=== PATIENT | male | born 1985 | race Caucasian/White ===

== ENCOUNTER → 2017-10-14 16:12 | Outpatient (CLI) | payer BC, SELFPAY ==
--- NOTE | 2017-10-16 | LES_PTH ---
PATIENT: DAGOBERTO IBARRA LOC: [facility] U#:[id number] AGE/SX: 40/M ROOM: RE10/14/[address]: Dr. Dewey Gonsalves DO : 1985 BED: DIS: SPEC #: [id number] RECD: 10/17/17 08:07 STATUS: TIO PÉREZ #: [id number] SYD: 10/16/17 00:[address]: Dewey Gonsalves DEPT: SURGICAL PATHOLOGY RECD BY: Alfonso Etienne Tissues: Skin of upper extremity and shoulder Procedures: Surgery Specimen Level IV HEADER OPERATION: Punch biopsy PRE-OP DIAGNOSIS: Abnormal nevus; rule out melanoma TISSUE SUBMITTED: 3 mm punch, right posterior shoulder MICROSCOPIC DIAGNOSIS Skin lesion right posterior shoulder, punch biopsy: Intradermal nevus with mild architectural atypia. AM:lilly 10/18/17 COMMENT Immunohistochemistry ([id number]) supports the above diagnosis. Case has been reviewed in consultation with Dr. Maradiaga who concurs with the above diagnosis. IDC:SJ MICROSCOPIC DESCRIPTION Slides are reviewed. GROSS DESCRIPTION Received is one container labeled with the patient's name and not further designated. The specimen consists of a single irregular fragment of blanton tissue measuring 0.2 x 0.2 x 0.1 cm. The specimen is totally submitted in one cassette. / AM:lilly 10/17/17 TC:? CPT: 02247
--- NOTE | 2017-10-16 | IMM_PTH ---
PATIENT: DAGOBERTO IBARRA LOC: [facility] U#:[id number] AGE/SX: 40/M ROOM: RE10/14/[address]: Dr. Dewey Gonsalves DO : 1985 BED: DIS: SPEC #: [id number] RECD: 10/18/17 10:36 STATUS: TIO REDinora #: [id number] SYD: 10/16/17 00:[address]: Dewey Gonsalves DEPT: IMMUNOHISTOCHEMISTRY RECD BY: Breanna Hdez Tissues: Shoulder, NOS Procedures: Vimentin (add) Pankeratin (add) MELAN-A (initial) S-100 (add) PHYSICIAN & INSTITUTION [place] [id number] SPECIMEN INFORMATION: Tissue Source: Right posterior shoulder Clinical Info: Abnormal nevus Specimen Number: [id number] CPT code: 73718, 49357 x3 METHODOLOGY: Deparaffinized sections of prefer/formalin-fixed tissue or PAP/DQ stained slides are incubated with monoclonal/polyclonal antibodies/oligonucleotide probes. Localization is made via biotin free immunoperoxidase method. Appropriate controls are performed and reacted as expected. Results on target cell population are indicated in the following table: RESULTS: ANTIBODY / CLONE RESULT Melan A (A103) positive S-100 (4C4.9) positive Vimentin (V9) positive AE1-3 (AE1/AE3/PCK26) negative These tests were developed and their performance characteristics determined by [facility]. They may not have been cleared or approved by the U.S. Food and Drug Administration. The FDA has determined that such clearance or approval is not necessary. INTERPRETATION: Right posterior shoulder, punch biopsy: Consistent with intradermal nevus. AM:lilly 10/19/17 Comment: Complete excision is recommended if clinically indicated. Case has been reviewed in consultation with Dr. Maradiaga who concurs with the above diagnosis. IDC:SJ
== END ==
PROVIDERS: Family Provider Family Medicine; PCP Family Medicine; Visit Provider Family Medicine
DX: D22.9 Melanocytic nevi, unspecified (principal)
CPT/HCPCS: 88305; 88341; 88342

== ENCOUNTER 2018-04-02 22:12 | Emergency (ER) | payer BC, SELFPAY ==
--- NOTE | 2018-04-02 22:20 | EKG12_ITS ---
Test Reason : TACHYCARDIA Blood Pressure : / mmHG Vent. Rate : 146 BPM Atrial Rate : 146 BPM P-R Int : 000 ms QRS Dur : 106 ms QT Int : 342 ms P-R-T Axes : 000 009 037 degrees QTc Int : 532 ms Atrial flutter Septal infarct , age undetermined Abnormal ECG Confirmed by PEEWEE SINGH, UMAIR ([id number]), editorial intern MATT CASEY ([id number]) on 04/04/2018 2:16:03 PM Referred By: HUBERT CHATTERJEE Confirmed By:UMAIR VIDES MD
[2018-04-02 22:31] VITALS: BP 116/82; PULSE 147; RESP 23; TEMP 36.9; O2SAT 94; BMI 26.8
--- NOTE | 2018-04-02 22:31 | EKG12_ITS ---
Test Reason : REPEAT Blood Pressure : / mmHG Vent. Rate : 070 BPM Atrial Rate : 070 BPM P-R Int : 164 ms QRS Dur : 104 ms QT Int : 402 ms P-R-T Axes : -08 -12 -02 degrees QTc Int : 434 ms Normal sinus rhythm Normal ECG Confirmed by PEEWEE SINGH, UMAIR ([id number]), web content editor MATT CASEY ([id number]) on 04/04/2018 12:43:29 PM Referred By: PRICILA Confirmed By:UMAIR VIDES MD
[2018-04-02 22:34] VITALS: O2SAT 94
--- NOTE | 2018-04-02 22:35 | ED.VISSUMM ---
- ER Visit Summary Date of Service: 04/02/18 Chief Complaint: Palpitations History of Present Illness: The patient is a [address] 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 He has a history of coarctation of the aorta, bicuspid aortic valve, and aortic root dilation. He is also had aortic valvulotomy, and aortic balloon valvuloplasty. Patient reports she has palpitations that began 1 hour ago. States his heart rates usually in the 60s and 70s. It is now 145. Reports that he felt lightheaded at the onset of this. He has not had any syncope. He denies any chest pain or shortness of breath. No nausea or vomiting. He has been diaphoretic with this. Had a similar episode in 2016 and was in atrial flutter. He has not had this since. Review of systems: General: No fever, chills, cold sweats. Cardiovascular: No chest pain. Respiratory: No cough, shortness of breath, dyspnea on exertion. Gastrointestinal: No abdominal pain, nausea, vomiting, diarrhea, melena, or hematochezia. Genitourinary: No dysuria, frequency, hematuria. Skin: No rash. Neuro: No headache, numbness, weakness. Physical Examination: Vitals: 98.7, 116/82, 146, 20, 98% on room air which is not hypoxic. General: Well-nourished and well-developed. Head: Normocephalic atraumatic. Neck: Supple, no lymphadenopathy. No JVD. Nontender. Cardiovascular: Regular rate and rhythm. No murmurs. Respiratory: No respiratory distress. Clear to auscultation bilaterally. Abdominal: Soft, nontender, nondistended, normal bowel sounds. No guarding, rebound, or peritoneal signs. Back: Nontender. Extremities: Nontender, no edema. Skin: Normal color, no rash. Neurologic: Alert and oriented ?3. Cranial nerves II through XII are intact. Normal strength and sensation. Psych: Normal affect. Test Results: EKG is atrial flutter at [address] changes. Repeat EKG is sinus at 70 with no acute changes. CBC is more for hemoglobin is 16.8, segmented neutrophils of 43, lymphocytes 41. Chem-7 is more for chloride 108. Troponin is negative. TSH is 3.54. Chest x-ray shows no acute disease. Emergency Department Course and Treatment: Patient had an IV placed. He was given Cardizem IV with essentially no decrease in his rate. He was given a second 25 mg bolus of Cardizem. This also did not affect his rate. Had prolonged discussion with the patient about treatment options. Ultimately he decided for cardioversion. Patient was given 8 mg of etomidate IV. He had synchronized cardioversion undertaken with 200 J and converted to sinus rhythm. He was observed for an hour following this remained in sinus rhythm. Treatment Plan: Patient will be discharged instructions to follow-up with his tank car cleaner at [facility] as soon as possible. Return to the emergency department for any change in his rhythm or other concerns. Disposition: To home in improved and stable condition. Impression: 1. Atrial flutter with RVR. 2. Procedural sedation. 3. Cardioversion. 4. Critical care time 30 minutes. This note was generated with [employer] dictation software. It may contain incorrect words, spelling, and punctuation that were not noted in review of the chart prior to signing ED Disposition - Plan for ED Patient: Disposition: Home or Assisted Living Chief Complaint: Palpitations Instructions: ED Paroxysmal Atrial Flutter Additional Instructions: follow up with your Pulp Refiner Operator within a week for another exam.
[2018-04-02] MEDS: dilTIAZem 25 MG/5 ML Vial 20 MG IV BOLUS (22:40)
[2018-04-02] MEDS: Aspirin 81 MG TAB.CHEW 162 MG PO (22:40)
[2018-04-02] MEDS: 0.9% Normal Saline 1,000 ML 1000 ML IV (22:40)
--- NOTE | 2018-04-02 22:40 | RAD_ITS ---
STUDY: X-RAY CHEST REASON FOR EXAM: Male, 32 years old. Chest pain TECHNIQUE: Frontal view of the chest COMPARISON: 05/16/2016 FINDINGS: The lungs are clear. There are no pleural effusions. There is no pneumothorax. The heart is normal in size. The visualized osseous structures are within normal limits. RAD/Chest 1 View (Portable) IMPRESSION: No acute thoracic pathology. Electronically Signed: Shawn Alanis, at 23:14 EDT Tel , Service support ,
--- NOTE | 2018-04-02 22:49 | ED.DCSUM_ITS ---
- ER Visit Summary Date of Service: 04/02/18 Chief Complaint: Palpitations History of Present Illness: The patient is a [address] 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 He has a history of coarctation of the aorta, bicuspid aortic valve, and aortic root dilation. He is also had aortic valvulotomy, and aortic balloon valvuloplasty. Patient reports she has palpitations that began 1 hour ago. States his heart rates usually in the 60s and 70s. It is now 145. Reports that he felt lightheaded at the onset of this. He has not had any syncope. He denies any chest pain or shortness of breath. No nausea or vomiting. He has been diaphoretic with this. Had a similar episode in 2016 and was in atrial flutter. He has not had this since. Review of systems: General: No fever, chills, cold sweats. Cardiovascular: No chest pain. Respiratory: No cough, shortness of breath, dyspnea on exertion. Gastrointestinal: No abdominal pain, nausea, vomiting, diarrhea, melena, or hematochezia. Genitourinary: No dysuria, frequency, hematuria. Skin: No rash. Neuro: No headache, numbness, weakness. Physical Examination: Vitals: 98.7, 116/82, 146, 20, 98% on room air which is not hypoxic. General: Well-nourished and well-developed. Head: Normocephalic atraumatic. Neck: Supple, no lymphadenopathy. No JVD. Nontender. Cardiovascular: Regular rate and rhythm. No murmurs. Respiratory: No respiratory distress. Clear to auscultation bilaterally. Abdominal: Soft, nontender, nondistended, normal bowel sounds. No guarding, rebound, or peritoneal signs. Back: Nontender. Extremities: Nontender, no edema. Skin: Normal color, no rash. Neurologic: Alert and oriented ?3. Cranial nerves II through XII are intact. Normal strength and sensation. Psych: Normal affect. Test Results: EKG is atrial flutter at [address] changes. Repeat EKG is sinus at 70 with no acute changes. CBC is more for hemoglobin is 16.8, segmented neutrophils of 43, lymphocytes 41. Chem-7 is more for chloride 108. Troponin is negative. TSH is 3.54. Chest x-ray shows no acute disease. Emergency Department Course and Treatment: Patient had an IV placed. He was given Cardizem IV with essentially no decrease in his rate. He was given a second 25 mg bolus of Cardizem. This also did not affect his rate. Had prolonged discussion with the patient about treatment options. Ultimately he decided for cardioversion. Patient was given 8 mg of etomidate IV. He had synchronized cardioversion undertaken with 200 J and converted to sinus rhythm. He was observed for an hour following this remained in sinus rhythm. Treatment Plan: Patient will be discharged instructions to follow-up with his bag machine adjuster at [facility] as soon as possible. Return to the emergency department for any change in his rhythm or other concerns. Disposition: To home in improved and stable condition. Impression: 1. Atrial flutter with RVR. 2. Procedural sedation. 3. Cardioversion. 4. Critical care time 30 minutes. This note was generated with [employer] dictation software. It may contain incorrect words, spelling, and punctuation that were not noted in review of the chart prior to signing ED Disposition - Plan for ED Patient: Disposition: Home or Assisted Living Chief Complaint: Palpitations Instructions: ED Paroxysmal Atrial Flutter Additional Instructions: follow up with your Vertical Lathe Operator within a week for another exam.
[2018-04-02 22:55] VITALS: BP 118/82; PULSE 146; RESP 16; O2SAT 98
[2018-04-02 22:56] LABS: Absolute Lymphocyte Count 2.31 X10^3/ul (0.83-4.51); Absolute Neutrophil Count 2.4 X10^3/uL (2.0-7.7); Basophil# 0.04 X10^3/uL; Basophil% 0.7 % (0-1); Eosinophil# 0.26 X10^3/uL; Eosinophils% 4.7 % (0-5); Hematocrit 47.4 % (40-54); Hemoglobin 16.8 g/dl (13.0-16.5); Lymphocyte # 2.31 X10^3/ul (4.0); Lymphocyte % 41.3 % (19-41); Mean Corp Hgb Conc 35.4 g/gl (32-36); Mean Corpuscular Hgb 31.5 pg (27.0-32.0); Mean Corpuscular Volume 88.8 fL (80-94); Mean Platelet Vol. 10.4 fl (6.2-12.0); Monocyte# 0.58 X10^3/uL; Monocyte% 10.4 % (0-10); Neutrophil # 2.39 X10^3/uL (2.7-7.7); Neutrophil % 42.7 % (47-70); Platelet Count 175 K/mm3 (150-450); RBC Distribution Width CV 12.9 % (11.6-14.6); RBC Distribution Width SD 42.3 fl (35.1-43.9); Red Blood Count 5.34 M/mm3 (4.6-6.2); White Blood Count 5.6 K/mm3 (4.4-11.0)
[2018-04-02 22:57] LABS: POSITIVE COUNT NO; POSITIVE DIFFERENTIAL NO; POSITIVE MORPHOLOGY NO
[2018-04-02 23:02] LABS: Anion Gap 11 (5-15); BUN 17 mg/dL (7-18); BUN/Creat Ratio 16.2 RATIO (10-20); Calcium,Total 9.2 mg/dL (8.5-10.1); Chloride 108 mmol/L (98-107); Creatinine, Serum 1.05 mg/dL (0.70-1.30); EST Glomerular Filtration Rate 88 mL/min (>60); Est Glom Filt Rate - Afr Amer 106 mL/min (>60); Estimated Creatinine Clearance 106.22 ml/min; Glucose 97 mg/dL (74-106); Potassium 3.7 mmol/L (3.5-5.1); Sodium Level 142 mmol/L (136-145); Thyroid Stim Hormone (TSH) 3.54 uIU/mL (0.358-3.74)
[2018-04-02] MEDS: dilTIAZem 25 MG/5 ML Vial IV BOLUS (23:07)
[2018-04-02 23:19] VITALS: BP 108/89; PULSE 146; RESP 16; O2SAT 97
[2018-04-02 23:53] VITALS: BP 112/85; PULSE 148; RESP 16; O2SAT 97
[2018-04-02] MEDS: Etomidate 20 MG/10 ML Vial 8 MG IV (23:58)
[2018-04-02 23:59] VITALS: BP 112/85; BP 119/97; PULSE 146; PULSE 84; RESP 16; O2SAT 100; O2SAT 98
[2018-04-03 00:02] VITALS: BP 119/91; PULSE 77; RESP 16; O2SAT 100
[2018-04-03 00:05] VITALS: BP 119/91; PULSE 67; RESP 16; O2SAT 100
[2018-04-03 00:07] VITALS: BP 113/90; PULSE 67; RESP 16; O2SAT 99
[2018-04-03 00:08] VITALS: BP 113/90; O2SAT 100
[2018-04-03 00:12] VITALS: BP 113/90; PULSE 71; RESP 16; O2SAT 98
[2018-04-03 00:44] VITALS: BP 112/86; PULSE 72; RESP 16; O2SAT 97
== END 2018-04-03 00:52 | disposition home or self-care (01) ==
LOC: ED 23:05
PROVIDERS: Emergency Provider Emergency Medicine; Family Provider Family Medicine; PCP Family Medicine
DX: I48.92 Unspecified atrial flutter (principal); Q23.1 Congenital insufficiency of aortic valve
CPT/HCPCS: 71045; 80048; 84443; 84484; 85025; 92960; 93005; 99284; J7030; A4216

== ENCOUNTER → 2018-09-07 16:28 | Outpatient (CLI) | payer BC, SELFPAY ==
[2018-09-07 14:23] VITALS: BMI 25.8
--- NOTE | 2018-09-07 15:15 | MASS_PTH ---
PATIENT: DAGOBERTO IBARRA LOC: [facility] U#:[id number] AGE/SX: 40/M ROOM: RE09/07/[address]: Dr. Harish Jimenez MD : 1985 BED: DIS: SPEC #: [id number] RECD: 09/07/18 16:20 STATUS: TIO BETO #: [id number] SYD: 09/07/18 15:[address]: Harish Jimenez DEPT: SURGICAL PATHOLOGY RECD BY: Zain Ferro ENTERED: 09/08/18 12:13 SP TYPE: Mass OTHR DR: Dr. Dewey Gonsalves, DO Tissues: Hip, NOS Procedures: Surgery Specimen Level III HEADER OPERATION: Excision of subcutaneous mass right hip PRE-OP DIAGNOSIS: Mass of right hip region TISSUE SUBMITTED: Right hip mass MICROSCOPIC DIAGNOSIS Right hip mass, excision: Mature adipose tissue, consistent with lipoma with focal area of angiolipoma. SJ:lilly 12/24/18 MICROSCOPIC DESCRIPTION Slides are reviewed. GROSS DESCRIPTION Received in fixative is one container labeled with the patient's name and designated right hip mass. The specimen consists of a previously, partially disrupted piece of yellow adipose tissue measuring 9 x 5 x 3 cm. Sections reveal yellow adipose cut surfaces without area of hemorrhage, necrosis or cystic degeneration. Halal Butcher sections are submitted in two cassettes. / SJ:lilly 09/08/18 TC:1 CPT: 38160
== END ==
PROVIDERS: Family Provider Family Medicine; PCP Family Medicine; Referring Provider Surgery; Visit Provider Surgery
DX: R22.41 Localized swelling, mass and lump, right lower limb (principal)
CPT/HCPCS: 88304; 88305

== ENCOUNTER → 2022-02-26 | Outpatient (CLI) | payer OTHER, SELFPAY ==
[2022-02-26 12:38] LABS: Absolute Lymphocyte Count 1.61 X10^3/uL (0.83-4.51); Absolute Neutrophil Count 2.6 X10^3/uL (2.0-7.7); Basophil# 0.04 X10^3/uL; Basophil% 0.8 % (0-1); Eosinophil# 0.13 X10^3/uL; Eosinophils% 2.6 % (0-5); Hemoglobin 15.9 g/dL (13.0-16.5); Lymphocyte # 1.61 X10^3/ul (0.83-4.51); Lymphocyte % 32.4 % (19-41); Mean Corp Hgb Conc 33.8 g/dL (32-36); Mean Corpuscular Volume 91.6 fL (80-94); Mean Platelet Vol. 9.6 fl (6.2-12.0); Monocyte% 12.1 % (0-10); NRBC Flagged by Analyzer 0 % (0-5); Neutrophil # 2.58 X10^3/uL (2.7-7.7); Neutrophil % 51.9 % (47-70); Platelet Count 199 K/mm3 (150-450); RBC Distribution Width CV 12.7 % (11.6-14.6); Red Blood Count 5.13 M/mm3 (4.6-6.2)
[2022-02-26 12:49] LABS: Erythrocyte Sedimentation Rate 6 mm/hr (0-20)
[2022-02-26 13:06] LABS: CRP < 2.90 mg/L (0.0-3.0)
== END | disposition home or self-care (01) ==
LOC: LAB 11:37
PROVIDERS: PCP Family Medicine; Visit Provider Nurse Practitioner Adult Health
DX: K62.5 Hemorrhage of anus and rectum (principal); K62.89 Other specified diseases of anus and rectum
CPT/HCPCS: 36415; 85025; 85652; 86140

== ENCOUNTER 2022-05-05 10:56 | Day surgery (SDC) | payer OTHER, SELFPAY ==
[2022-05-05] VITALS (7 sets, daily range): BP systolic 98–134; BP diastolic 82–99; PULSE 70–106; RESP 16; TEMP 36.6–36.8; O2SAT 96–100; BMI 27.6
--- NOTE | 2022-05-05 | COLBX_PTH ---
PATIENT: DAGOBERTO IBARRA LOC: [facility] U#:[id number] AGE/SX: 36/M ROOM: RE05/05/[address]: Dr. Shabbir Estrada DO : 1985 BED: DIS: 05/05/2022 SPEC #: [id number] RECD: 05/05/22 14:22 STATUS: TIO BETO #: [id number] SYD: 05/05/22 00:[address]: Shabbir Estrada DEPT: SURGICAL PATHOLOGY RECD BY: Alfonso Etienne ENTERED: 05/06/22 08:53 SP TYPE: COLON BX OT DR: Dr. Dewey Gonsalves DO Tissues: A - Ileum, NOS B - COLON BIOPSY Procedures: Surgery Specimen Level IV HEADER OPERATION: Colonoscopy (MAC) PRE-OP DIAGNOSIS: Lower GI bleed TISSUE SUBMITTED: A. Terminal ileum, B. Random colon MICROSCOPIC DIAGNOSIS A. Terminal ileum, biopsy: Fragments of small intestinal mucosa, no pathologic diagnosis. B. Random colon, biopsy: Fragments of colonic mucosa, no pathologic diagnosis. JESSIE 05/07/2022 MICROSCOPIC DESCRIPTION Slides are reviewed. GROSS DESCRIPTION A. Received is one container labeled with the patient name and designated terminal ileum. The specimen consists of two irregular fragments of light blanton soft tissue that in aggregate 0.6 x 0.3 x 0.1 cm. The specimen is totally submitted in one cassette. B. Received is one container labeled with the patient name and designated random colon. The specimen consists of multiple irregular fragments of light blanton soft tissue that in aggregate 0.8 x 0.8 x 0.1 cm. The specimen is totally submitted in one cassette. /JESSIE:millie 05/06/22 TC:4 CPT:52333 x2
[2022-05-05] MEDS: Lactated Ringers 1,000 ML 15 ML IV (11:26)
--- NOTE | 2022-05-05 11:44 | PCM.HP.BLA ---
History and Physical Date of Admission: 05/05/22 DAGOBERTO IBARRA, is a 36 M who presents to the office today for approx one year of bright red blood per rectum that is painful. He has been treated for possible internal hemorrhoids with prescription suppository; he gets only brief temporary relief. He says the pain is usually a mild discomfort but can be more severe. The discomfort is maybe just inside the anus but difficult to tell. Also has a discomfort in the lower abdomen; gets the feeling he might have diarrhea but doesn't, it's a discomfort in the lower intestines. The rectal bleeding and discomfort occur almost every time he has BM. Denies constipation, straining, hard stools.? Denies diarrhea.? No black tarry stools. He has no dysphagia or difficulty swallowing, no nausea or vomiting, no heartburn or acid reflux.? No abdominal pain other than the discomfort in the lower intestines. Only recent labs are lipids and glucose. Grandfather of colon cancer recently, he was in his 80s No FH inflammatory bowel disease His comorbidities include aortic root dilation, atrial flutter, headaches, vasovagal attack Prior surgery for bicuspid aortic valve, coarctation of aorta, radiofrequency ablation for arrhythmia ROS Const Constitutional: No fatigue ENT ENT: No difficulty swallowing Gastro GI: Positive for Blood in stool; No abdominal pain, belching, bloating, change in bowel habits, change in stool character, coffee ground emesis, constipation, cramping, diarrhea, heartburn, difficulty swallowing, feeling full early, excessive flatus, incontinent of stools, Vomiting blood/hematemesis, loose stools, Black,tarry stools, nausea/dyspepsia, pain with swallowing, vomiting or other Musc Musculoskeletal: Positive for back pain and stiffness; No joint pain Skin Skin: No yellowing of the eye or itchy eyes Psych Psychiatric: No anxiety and No depression Endo Endocrine: No fatigue Aller/Imm Allergy/Immunologic: No itchy eyes Jaime/Lymp Hematologic/Lymphatic: No easy bleeding or easy bruising Exam Const General: healthy appearing, comfortable, well developed and well groomed Nutritional Appearance: average body habitus Eyes General: appearance normal, both eyes and all related structures Resp Effort & Inspection: normal respiratory effort Neuro General: patient alert, patient awake and patient oriented x3 Speech: speech normal Gait: normal gait Psych Mood: euthymic mood Affect: normal affect Quality Reporting Tobacco Screening ([facility] 138) Smoking Status: Never smoker Assessment and Plan Assessment and Plan (1) Bright red blood per rectum: ?Status:?Acute (2) Rectal pain: ?Status:?Acute ? ? ? Orders:?Orders: ? CRP Today K62.5, K62.89 ? ? CBC W/Diff, Automated Today K62.5, K62.89 ? ? Erythrocyte Sed Rate Today K62.5, K62.89 ?Plan - Janett Umana NURSE RECRUITER, NURSE RECRUITER-C: 36-year-old male with painful rectal bleeding.? He may have internal hemorrhoids that need banding.? We also need to evaluate him for ulcerative colitis or malignancy.? Today we will get CBC and inflammatory markers.? We will notify him of of those results, and if any further evaluation is needed based on those.? We will schedule him for colonoscopy with 2-week follow-up to discuss results. I have re-examined the patient. There are no clinical changes since date of exam.
--- NOTE | 2022-05-05 12:33 | OP.COLON_ITS ---
Patient Name: Noel Arteaga Procedure Date: 05/05/2022 11:44 AM Date of : 1985 Age: 36 Procedure: Colonoscopy Indications: Hematochezia Providers: Shabbir Estrada DO Medicines: Monitored Anesthesia Care Patient Profile: This is a 36 year old male. Refer to note in patient chart for documentation of history and physical. Last Colonoscopy: none. The patient's first colonoscopy is today. Complications: No immediate complications. Procedure: Pre-Anesthesia Assessment: - Prior to the procedure, a History and Physical was performed, and patient medications and allergies were reviewed. The patient is competent. The risks and benefits of the procedure and the sedation options and risks were discussed with the patient. All questions were answered and informed consent was obtained. Patient identification and proposed procedure were verified by the physician in the pre-procedure area. Mental Status Examination: alert and oriented. Airway Examination: normal oropharyngeal airway and neck mobility. Respiratory Examination: clear to auscultation. CV Examination: normal. Prophylactic Antibiotics: The patient does not require prophylactic antibiotics. Prior Anticoagulants: The patient has taken no previous anticoagulant or antiplatelet agents. ASA Grade Assessment: II - A patient with mild systemic disease. After reviewing the risks and benefits, the patient was deemed in satisfactory condition to undergo the procedure. The anesthesia plan was to use moderate sedation / analgesia (conscious sedation). Immediately prior to administration of medications, the patient was re-assessed for adequacy to receive sedatives. The heart rate, respiratory rate, oxygen saturations, blood pressure, adequacy of pulmonary ventilation, and response to care were monitored throughout the procedure. The physical status of the patient was re-assessed after the procedure. After I obtained informed consent, the scope was passed under direct vision. Throughout the procedure, the patient's blood pressure, pulse, and oxygen saturations were monitored continuously. The adult colonoscope was introduced through the anus and advanced to the terminal ileum. The colonoscopy was performed without difficulty. The patient tolerated the procedure well. The quality of the bowel preparation was good. Scope In: 12:03:02 PM Scope Withdrawal Time 0 hours 14 minutes 37 seconds Scope Out: 12:20:45 PM Total Procedure Duration Time 0 hours 17 minutes 43 seconds Findings: Hemorrhoids were found on perianal exam. An area of mildly congested mucosa was found in the recto-sigmoid colon, in the sigmoid colon, at the splenic flexure and in the transverse colon. Biopsies were taken with a cold forceps for histology. Verification of patient identification for the specimen was done. Estimated blood loss was minimal. A patchy area of mucosa in the terminal ileum was mildly friable with no bleeding. Biopsies were taken with a cold forceps for histology. Verification of patient identification for the specimen was done. Estimated blood loss was minimal. Non-bleeding non-prolapsed thrombosed external and internal hemorrhoids were found during retroflexion and during perianal exam. The hemorrhoids were Grade II (internal hemorrhoids that prolapse but reduce spontaneously) and Grade III (internal hemorrhoids that prolapse but require manual reduction). Impression: - Hemorrhoids found on perianal exam. - Congested mucosa in the recto-sigmoid colon, in the sigmoid colon, at the splenic flexure and in the transverse colon. Biopsied. - Friability with no bleeding in the terminal ileum. Biopsied. - Non-bleeding non-prolapsed thrombosed external and internal hemorrhoids. Recommendation: - Repeat colonoscopy in 5 years for surveillance based on pathology results. - Hydrocortisone suppositories twice a day x 21 days - Anoscopic exam in office after the anal fissure has healed - Hemorrhoid banding in the office - Continue present medications. Procedure Code(s): --- Professional --- 23217, Colonoscopy, flexible; with biopsy, single or multiple CPT copyright 2017 [employer]. All rights reserved. The codes documented in this report are preliminary and upon car hiker review may be revised to meet current compliance requirements. Shabbir Estrada DO 05/05/2022 12:32:50 PM This report has been signed electronically. Number of Addenda: 1 Note Initiated On: 05/05/2022 11:44 AM Addendum Number: 1 Addendum Date: 06/24/2022 6:15:12 AM MAC was used as sedation for this procedure. Shabbir Estrada DO 06/24/2022 6:15:17 AM This report has been signed electronically.
--- NOTE | 2022-05-05 12:34 | OP.CCLET_ITS ---
06/24/2022 Dewey Gonsalves [address] [place] [address] Re : Colonoscopy procedure for Noel Arteaga Dear Dr. Gonsalves This procedure was performed on Thursday, May 05, 2022. My impressions and recommendations are as follows: Impressions : - Hemorrhoids found on perianal exam. - Congested mucosa in the recto-sigmoid colon, in the sigmoid colon, at the splenic flexure and in the transverse colon. Biopsied. - Friability with no bleeding in the terminal ileum. Biopsied. - Non-bleeding non-prolapsed thrombosed external and internal hemorrhoids. Recommendations : - Repeat colonoscopy in 5 years for surveillance based on pathology results. - Hydrocortisone suppositories twice a day x 21 days - Anoscopic exam in office after the anal fissure has healed - Hemorrhoid banding in the office - Continue present medications. My findings are described in the full procedure note, which is enclosed. If I can be of further assistance, please feel free to contact me at . Sincerely, Shabbir Estrada, 05/05/2022 12:32:50 PM This report has been signed electronically.
== END 2022-05-05 13:22 | disposition home or self-care (01) ==
LOC: EN 10:58 → AC 11:05
PROVIDERS: PCP Family Medicine; Referring Provider Family Medicine; Visit Provider Internal Medicine Gastroenterology
PROC: 0DJD8ZZ Inspection of Lower Intestinal Tract, Via Natural or Artificial Opening Endoscopic (ICD-10-PCS; CPT 45378; principal; 2022-05-05 11:55)
DX: K62.5 Hemorrhage of anus and rectum (principal); K64.2 Third degree hemorrhoids; K64.1 Second degree hemorrhoids; Z80.0 Family history of malignant neoplasm of digestive organs; K62.89 Other specified diseases of anus and rectum
CPT/HCPCS: 45380; 88305; J7120; J2405

== ENCOUNTER 2023-02-27 20:40 | Emergency (ER) | payer OTHER, SELFPAY ==
[2023-02-27 20:41] VITALS: BP 130/96; PULSE 68; RESP 20; TEMP 35.5; O2SAT 100; BMI 26.9
--- NOTE | 2023-02-27 20:51 | ED.RN ---
EKG GIVEN RIGHT AWAY TO SANDOR. MADE AWARE OF PT WITH CHEST PAIN WITH HEART HISTORY BY RT FOURNIER. MADE AWARE THAT PHYSICIAN WAS REVIEWING EKG AND WOULD BE IN SOON AVAILABLE.
--- NOTE | 2023-02-27 20:59 | CT_ITS ---
INDICATION: Chest pain, abdominal pain EXAMINATION: CTA CHEST, ABDOMEN AND PELVIS WITH CONTRAST - TECHNIQUE: A CTA of the chest, abdomen, and pelvis is obtained with sagittal and coronal reconstructed MIP views. Three-dimensional surface rendered sequence of the thoracic and abdominal aorta was obtained. A radiation dose optimization technique was used for this scan. mL of [id number]-[id number]. Oral contrast: None. COMPARISON: None. FINDINGS: CT CHEST: THORACIC AORTA: 5.2 cm aneurysm of the ascending aorta likely from chronic hypertension or aortic stenosis. Suspect an aortic valve prosthesis. Unusual variant of a bovine arch with a common origin of the brachiocephalic trunk and left common carotid artery. Unusual variant anatomy to the proximal left subclavian artery which is hypoplastic and courses superiorly into the neck. Kink within the distal aortic arch at the origin of the descending aorta may represent coarctation or pseudocoarctation. The aortic arch measures 2.0 cm in diameter. The proximal descending aorta measures 2.5 cm in diameter. There is no evidence of aortic dissection.. ABDOMINAL AORTA: No aneurysm or dissection. No significant atheromatous disease. The left iliac arteries are unremarkable. There is variant anatomy of the right iliac arteries with a normal right common iliac artery which then bifurcates into multiple internal iliac artery branches without a normally visualized right external iliac artery. The right common femoral artery is supplied by the profunda femoris artery and collaterals from the right internal iliac artery. No chronic mesenteric ischemia or renal artery stenosis. Status post median sternotomy. LUNGS: The lungs are well-expanded without acute or chronic changes. No effusions or pneumothorax. MEDIASTINUM: The thyroid gland is normal. No mediastinal or hilar adenopathy. HEART: Heart is normal size. No pericardial effusion. No CAD. CT ABDOMEN AND PELVIS: LIVER: The liver enhances homogeneously. No masses identified. GALLBLADDER: The CBD is normal. Normal gallbladder. SPLEEN: Normal. PANCREAS: No masses or inflammation. ADRENAL GLANDS: Normal. KIDNEYS AND URETERS: The kidneys both enhance appropriately. There are normal size and shape. No hydronephrosis or nephrolithiasis. No renal masses or cysts. STOMACH: Normal. SMALL BOWEL: No abnormal distention of the small bowel. MESENTERY: No mesenteric inflammation. No ascites. COLON: No significant diverticulosis, masses or inflammation. The colon otherwise is normal. There is a large fatty ileocecal valve. APPENDIX: The appendix is visualized and normal. IVC: Normal. RETROPERITONEUM: No retroperitoneal lymphadenopathy. PELVIC STRUCTURES: Normal bladder. SOFT TISSUES ABDOMEN: The anterior abdominal wall is normal. SOFT TISSUE CHEST: The extrathoracic soft tissues are normal. BONES: No fractures or significant degenerative disease. CT/CTA Chst, Abd, Pel W and/or WO IMPRESSION: 1. No acute abnormality. 2. 5.2 cm aneurysm of the ascending aorta likely from chronic aortic stenosis with a suspected aortic valve prosthesis. 3. . Variant anatomy of the aortic arch with a possible coarctation or pseudocoarctation, bovine arch, and hypoplastic proximal left subclavian artery which courses superiorly into the base of the neck. 4. No aortic dissection. 5. No chronic mesenteric ischemia renal artery stenosis. 6. 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 Electronically Signed: Bebeto Walker MD at 22:20 EDT ,
--- NOTE | 2023-02-27 20:59 | EKG12_ITS ---
Test Reason : CP Blood Pressure : / mmHG Vent. Rate : 070 BPM Atrial Rate : 070 BPM P-R Int : 178 ms QRS Dur : 094 ms QT Int : 418 ms P-R-T Axes : 031 -19 017 degrees QTc Int : 451 ms Normal sinus rhythm Septal infarct , age undetermined Abnormal ECG Confirmed by JEREMIAH SINGH, FUNMI ([id number]), news video editor HENRIK MALCOLM ([id number]) on 03/01/2023 8:59:17 AM Referred By: AL Confirmed By:FREEMAN DANIELS MD
[2023-02-27] MEDS: Ondansetron 4 MG/2 ML Vial IV (21:05)
[2023-02-27] MEDS: Morphine 4 MG/ML Syringe IV ×2 (21:06→23:30)
[2023-02-27 21:17] LABS: Absolute Lymphocyte Count 3.03 X10^3/uL (0.83-4.51); Absolute Neutrophil Count 4.9 X10^3/uL (2.0-7.7); Basophil# 0.06 X10^3/uL; Basophil% 0.6 % (0-1); Eosinophil# 0.29 X10^3/uL; Eosinophils% 3.1 % (0-5); Hematocrit 47.2 % (40-54); Hemoglobin 15.9 g/dL (13.0-16.5); Lymphocyte # 3.03 X10^3/ul (0.83-4.51); Lymphocyte % 32.3 % (19-41); Mean Corp Hgb Conc 33.7 g/dL (32-36); Mean Corpuscular Hgb 31.3 pg (27.0-32.0); Mean Corpuscular Volume 92.9 fL (80-94); Monocyte% 11.7 % (0-10); NRBC Flagged by Analyzer 0 % (0-5); Neutrophil # 4.89 X10^3/uL (2.7-7.7); Neutrophil % 52.1 % (47-70); Platelet Count 191 K/mm3 (150-450); RBC Distribution Width CV 12.6 % (11.6-14.6); Red Blood Count 5.08 M/mm3 (4.6-6.2); White Blood Count 9.4 K/mm3 (4.4-11.0)
[2023-02-27 21:22] LABS: Prothrombin Time (Protime)PT. 13.5 SECONDS (11.7-14.9)
[2023-02-27 21:26] LABS: ALB/GLOB Ratio 1.2 RATIO (0.9-2.4); AST(SGOT) 31 U/L (15-37); Alanine Aminotransfer ALT/SGPT 32 U/L (16-61); Albumin, Serum 4.3 g/dL (3.2-5.0); Alkaline Phosphatase 70 U/L (45-117); Anion Gap 9 (5-15); BUN 27 mg/dL (7-18); BUN/Creat Ratio 17.8 RATIO (10-20); Calcium,Total 9.6 mg/dL (8.5-10.1); Chloride 106 mmol/L (98-107); Creatinine, Serum 1.52 mg/dL (0.70-1.30); EST Glomerular Filtration Rate 56 mL/min (>60); Est Glom Filt Rate - Afr Amer 67 mL/min (>60); Estimated Creatinine Clearance 70.04 ml/min; Globulin 3.5 g/dL (2.2-4.2); Glucose 109 mg/dL (74-106); Lipase 39 U/L (13-75); Potassium 3.7 mmol/L (3.5-5.1); Protein, Total 7.8 g/dL (6.4-8.2); Sodium Level 141 mmol/L (136-145); Troponin-I HS (w/2H Reflex) 4 pg/mL (3.0-78.0)
[2023-02-27] MEDS: 0.9% Normal Saline 1,000 ML 1000 ML IV (22:13)
[2023-02-27 22:24] LABS: Bacteria 0 SEEN /hpf (None Seen); Mucous, Urine 0 SEEN /hpf (<or=2+); Red Blood Cells-Urine 0 SEEN /hpf (0-5); White Blood Cells 0 SEEN /hpf (0-5)
[2023-02-27 22:26] LABS: Color, Urine Yellow (Yellow); Glucose, Dipstick Normal (Normal); Ketone-Dipstick Negative (Negative); Leukocyte Esterase-Dipstick Negative /ul (Negative); Nitrite-Dipstick Negative (Negative); Occult Blood-Urine Negative /ul (Negative); Protein-Dipstick 15 mg/dl (Negative); Specific Gravity, Urine 1.005 (1.002-1.030); Urine Bilirubin Dipstick Negative (Negative); Urine Clarity Sl. Cloudy (Clear); Urine Urobilinogen Normal (Normal)
[2023-02-27 22:32] LABS: Squamous Epithelial Cells - UA 5-10 SEEN /hpf (0-5)
[2023-02-27 22:33] LABS: Amorphous Sediment 1+ PHOS
[2023-02-27 23:05] LABS: Reflex Troponin-HS? (from REC) Y
--- NOTE | 2023-02-27 23:23 | ED.VIS.CHEST ---
HPI History of Present Illness Chief Complaint: Chest Pain Informant: patient and spouse/S.O. Onset/Context/Timing Onset: Today and Hours (1.5) Activity at onset: sudden Timing: Continuous Quality: Positive for - (Cramping) Location: Substernal and - (Epigastric area) Worsened By: Movement of Torso Relieved By: Nothing Associated Symptoms: Positive for Diaphoresis; Negative for Nausea, Vomiting, Dyspnea, Cough, Fever, Lightheadedness, Acid Reflux or Palpitations Narrative Narrative: Patient presents with chest pain that began 1-1/2 hours prior to arrival. Patient states it began rather suddenly. Patient describes it as cramping sensation. Patient states it is over the epigastric area and substernal area. Patient states it is worse with certain movements. Patient admits to some diaphoresis with the pain. Patient denies any nausea or vomiting. Patient denies any fevers or chills. Patient denies any shortness of breath or cough. Patient has a history of coarctation of the aorta, bicuspid aortic valve, and aortic root dilatation. CVD Risk Factors: Negative for Hypertension, Diabetes, Hypercholesterolemia, Family History 1' </=55 or Smoking PE Risk Factors: Negative for Recent Travel/Surgery, Recent Immobilization, Prior DVT or PE, Cancer or OCP + Smoking + >/=35 PFSH PFSH Medical History Abnormal cardiac enzyme level Alcohol use Anxiety Aortic root dilation Aortic stenosis Atrial fibrillation Atrial flutter with rapid ventricular response Back pain Blood in the stool Cardiology follow-up encounter Congenital heart defect Depression Heart disease Heartburn Hemorrhoids History of echocardiogram History of stress test Leg cramps Nausea Non-smoker Palpitations Vasovagal attack Wears glasses Home Medications Escitalopram Oxalate 10 mg PO DAILY 05/16/16 [History Last Taken 08/30/16] Losartan Potassium 25 mg PO DAILY 05/16/16 [History Last Taken 08/29/16] lorazepam 0.5 mg tablet 0.5 mg PO DAILY PRN Anxiety 05/17/16 [History Last Taken 08/23/16] aspirin 81 mg tablet,delayed release (Adult Aspirin Regimen) 81 mg PO DAILY 09/04/18 [History Last Taken Unknown] bupropion HCl 150 mg 24 hr tablet, extended release 150 mg PO QAM 12/17/18 [History Last Taken Unknown] cyclobenzaprine 10 mg tablet 10 mg PO PRN PRN Muscle Spasm 12/29/21 [History Last Taken Unknown] ondansetron HCl 4 mg tablet 4 mg PO PRN PRN Nausea 12/29/21 [History Last Taken Unknown] Diltiazem 2% / Lidocaine 5% ointment (compound) #1 ea 07/30/22 [Rx Last Taken Unknown] ferrous sulfate 325 mg (65 mg iron) tablet (iron) 325 mg PO DAILY 02/27/23 [History Last Taken Unknown] multivitamin 1 tab PO DAILY 02/27/23 [History Last Taken Unknown] Allergy/AdvReac Type Severity Reaction Status Date / Time No Known Allergies Allergy Verified 02/27/23 20:42 Family History Father Anxiety Other Colon cancer Surgical History Bicuspid aortic valve Coarctation of aorta History of cardiac catheterization S/P RF ablation operation for arrhythmia Social History Smoking Status: Never smoker second hand exposure: No alcohol intake: current alcohol intake frequency: a few times a month substance use type: does not use caffeine: Yes frequency: does not exercise seatbelt use: always ROS ROS ED ENT ENT ED: Reports ear pain Cardiovascular Cardiovascular: Reports as per HPI and chest pain Respiratory/Chest Respiratory/Chest: Denies cough or dyspnea Gastrointestinal Gastrointestinal: Denies nausea or vomiting Genitourinary Genitourinary ED: Denies dysuria or hematuria Musculoskeletal Musculoskeletal: Denies back pain or neck pain Integumentary Denies abscess or rash Neurologic Neurologic: Denies headache(s) or weakness Allergic/Immunologic Allergic/Immunologic ED: Denies mouth swelling, tongue swelling or urticaria EXAM Physical Exam Const Vital Signs: 02/27/23 20:41 02/27/23 20:43 02/27/23 23:32 Temperature 96 F L Temperature Source Temporal Pulse Rate 68 93 Respiratory Rate 20 H 12 Respiratory Effort Normal Blood Pressure 130/96 H 120/72 Blood Pressure Mean 107 88 Pulse Ox 100 96 Oxygen Delivery Method Room Air 02/28/23 01:14 Temperature Temperature Source Pulse Rate 71 Respiratory Rate 18 Respiratory Effort Blood Pressure 120/76 Blood Pressure Mean Pulse Ox 99 Oxygen Delivery Method Positive well nourished and well developed General Appearance ED: well developed and NAD HEENT normocephalic and atraumatic Eyes PERRL and EOMs intact bilaterally Neck supple and no JVD Chest Wall Chest Narrative: There is mild tenderness over the lower sternum. There is no edema or ecchymosis. There is no bony crepitance or step-off noted. Resp normal respiratory effort and clear to auscultation bilaterally Effort and Inspection: Negative for respiratory distress Cardio regular rate and regular rhythm GI normal to inspection, nondistended, normoactive bowel sounds and soft to palpation GI Narrative: There is mild tenderness over the epigastric area. There is no rebound or guarding noted. Extremity normal to inspection General Extremety ED: Negative for edema or tenderness General Extremity: Negative for edema Neuro oriented x3, CN's II-XII intact bilaterally and no sensory deficits noted Sensorium / Orientation: awake and alert Motor Exam: strength 5/5 throughout Psych mental status grossly normal Heart Score History: Slightly/Non-Suspicious ECG: Nonspecific Repolarization Age: </= 45 years Risk Factors: >/= 3 Risk Factors or History of CAD Troponin: </= Normal Limit Score: 3 MDM MDM MDM Narrative Medical decision making narrative: Differential diagnosis includes cardiac dysrhythmia, cardiac ischemia, electrolyte abnormality, aortic dissection, pulmonary embolism, aortic aneurysm, pneumonia, pancreatitis, anxiety, musculoskeletal pain. EKG will be obtained to assess for cardiac dysrhythmia and cardiac ischemia. CTA of the chest abdomen pelvis will be obtained to assess for aortic dissection, pulmonary embolism, and abdominal aneurysm. CBC will be obtained to assess for leukocytosis and anemia. Comprehensive metabolic profile will be obtained to assess for electrolyte abnormality, renal function, and hepatic function. High-sensitivity troponin will be obtained to assess for cardiac ischemia. Lipase will be obtained to assess for pancreatitis. PT was INR and PTT will be obtained to assess for coagulopathy. Urinalysis will be obtained to assess for urinary tract infection. Lab Data Attestation: I reviewed the patient's lab results. Lab results narrative: CBC was reviewed and was within normal limits. Comprehensive metabolic profile was reviewed. BUN was 27 and creatinine was 1.52. High-sensitivity troponin was reviewed and was normal at 4. Lipase was reviewed and was normal at 39. PT was INR and PTT were reviewed and were within normal limits. Urinalysis was reviewed and was within normal limits. 2-hour repeat high-sensitivity troponin was reviewed and was normal at 6. Labs: Laboratory Results - last 24 hr 02/27/23 02/27/23 02/27/23 20:10 20:10 20:10 WBC 9.4 RBC 5.08 Hgb 15.9 Hct 47.2 MCV 92.9 MCH 31.3 MCHC 33.7 RDW Std Deviation 43.0 RDW Coeff of Ayse 12.6 Plt Count 191 MPV 10.0 Immature Gran % (Auto) 0.200 Neut % (Auto) 52.1 Lymph % (Auto) 32.3 Andrews % (Auto) 11.7 H Eos % (Auto) 3.1 Baso % (Auto) 0.6 Absolute Neuts (auto) 4.9 Absolute Lymphs (auto) 3.03 Nucleated RBC % 0 PT 13.5 INR 1.0 APTT 32.0 Sodium 141 Potassium 3.7 Chloride 106 Carbon Dioxide 26.0 Anion Gap 9 BUN 27 H Creatinine 1.52 H Estim Creat Clear Calc 70.04 Est GFR (MDRD) Af Amer 67 Est GFR (MDRD) Non-Af 56 L BUN/Creatinine Ratio 17.8 Glucose 109 H Calcium 9.6 Total Bilirubin 0.50 AST 31 ALT 32 Alkaline Phosphatase 70 Troponin I High Sens 4 Total Protein 7.8 Albumin 4.3 Globulin 3.5 Albumin/Globulin Ratio 1.2 Lipase 39 Urine Color Urine Clarity Urine pH Ur Specific [place] Urine Protein Urine Glucose (UA) Urine Ketones Urine Occult Blood Urine Nitrite Urine Bilirubin Urine Urobilinogen Ur Leukocyte Esterase Urine RBC Urine WBC Ur Squamous Epith Cells Amorphous Sediment Urine Bacteria Urine Mucus 02/27/23 02/27/23 22:15 23:10 WBC RBC Hgb Hct MCV MCH MCHC RDW Std Deviation RDW Coeff of Ayse Plt Count MPV Immature Gran % (Auto) Neut % (Auto) Lymph % (Auto) Andrews % (Auto) Eos % (Auto) Baso % (Auto) Absolute Neuts (auto) Absolute Lymphs (auto) Nucleated RBC % PT INR APTT Sodium Potassium Chloride Carbon Dioxide Anion Gap BUN Creatinine Estim Creat Clear Calc Est GFR (MDRD) Af Amer Est GFR (MDRD) Non-Af BUN/Creatinine Ratio Glucose Calcium Total Bilirubin AST ALT Alkaline Phosphatase Troponin I High Sens 6 Total Protein Albumin Globulin Albumin/Globulin Ratio Lipase Urine Color Yellow Urine Clarity Sl. Cloudy Urine pH 7.0 Ur Specific [place] 1.005 Urine Protein 15 H Urine Glucose (UA) Normal Urine Ketones Negative Urine Occult Blood Negative Urine Nitrite Negative Urine Bilirubin Negative Urine Urobilinogen Normal Ur Leukocyte Esterase Negative Urine RBC 0 SEEN Urine WBC 0 SEEN Ur Squamous Epith Cells 5-10 SEEN Amorphous Sediment 1+ PHOS Urine Bacteria 0 SEEN Urine Mucus 0 SEEN Radiography Diagnostic Testing: Clinical Impression(s) from Imaging Studies Chest/Abdomen/Pelvis CTA 02/27/23 20:59 IMPRESSION: 1. No acute abnormality. 2. 5.2 cm aneurysm of the ascending aorta likely from chronic aortic stenosis with a suspected aortic valve prosthesis. 3. . Variant anatomy of the aortic arch with a possible coarctation or pseudocoarctation, bovine arch, and hypoplastic proximal left subclavian artery which courses superiorly into the base of the neck. 4. No aortic dissection. 5. No chronic mesenteric ischemia renal artery stenosis. 6. 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 Electronically Signed: Bebeto Walker MD at 22:20 EDT , CTA of the chest abdomen pelvis was obtained. There is no acute abnormality. There is a 5.2 cm aneurysm of the ascending aorta likely from his aortic valve prosthesis and chronic aortic stenosis. There is a variant anatomy of the aortic arch due to his prior coarctation of the aorta. There is no aortic dissection. There is no mesenteric ischemia noted. There is no evidence of pancreatitis. This was interpreted by the radiologist and was also independently reviewed by myself. EKG Initial EKG: Attestation: I personally reviewed and interpreted this EKG as follows: Interpretation: Sinus Rhythm (70) and No Acute Injury Pattern Prior EKG tracings: available for review Prior: Unchanged (04/02/2018) Treatment and Re-Evaluation :: AcutePatient was given IV fluids. Patient was given morphine and Zofran. Patient was given a repeat dose of morphine. Patient is feeling better on reevaluation. Patient was advised of his findings. Patient has a HEART score of 3. Patient was advised that this is low risk for acute cardiac event. Patient was to follow-up with his primary care physician in 5 to 7 days. Patient understood and was agreeable with the plan. All questions were answered. Discharge Plan Triage Chief Complaint: Chest Pain ED Provider: James Mcclelland Dx/Rx/DC Orders Clinical Impression: Chest pain, Aortic root dilation Instructions: ED Chest Pain, Uncertain Cause Prescriptions: No Action bupropion HCl 150 mg tablet extended release 24 hr 150 mg PO QAM aspirin [Adult Aspirin Regimen] 81 mg tablet,delayed release (DR/EC) 81 mg PO DAILY cyclobenzaprine 10 mg tablet 10 mg PO PRN PRN (Reason: Muscle Spasm) ondansetron HCl 4 mg tablet 4 mg PO PRN PRN (Reason: Nausea) (DME) Diltiazem 2% / Lidocaine 5% ointment (compound) Ointment See Rx Instructions .Route Qty: 1 1RF Rx Instructions: apply 2 times a day Escitalopram Oxalate 10 mg PO DAILY Losartan Potassium 25 mg PO DAILY lorazepam 0.5 MG tablet 0.5 mg PO DAILY PRN (Reason: Anxiety) Label Comments: 1/2 tab to 1 tab daily prn (usually takes once a week) multivitamin Tablet 1 tab PO DAILY ferrous sulfate [iron] 325 mg (65 mg iron) Tablet 325 mg PO DAILY Primary Care Provider: Dewey Gonsalves Referrals: Dewey Gonsalves DO [Primary Care Provider] - 5-7 Days Disposition Disposition: Home, Self Care Discharge Date/Time: 02/28/23 01:14
[2023-02-27 23:32] VITALS: BP 120/72; PULSE 93; RESP 12; O2SAT 96
[2023-02-27 23:43] LABS: Troponin-I HS 6 pg/mL (3.0-78.0)
[2023-02-28 01:14] VITALS: BP 120/76; PULSE 71; RESP 18; O2SAT 99
== END 2023-02-28 01:14 | disposition home or self-care (01) ==
PROVIDERS: Emergency Provider Emergency Medicine; PCP Family Medicine; Visit Provider Emergency Medicine
DX: R07.9 Chest pain, unspecified (principal); I77.819 Aortic ectasia, unspecified site; Q23.1 Congenital insufficiency of aortic valve; Z79.82 Long term (current) use of aspirin
CPT/HCPCS: 71275; 74174; 80053; 81001; 83690; 84484; 85025; 85610; 85730; 93005; 96361; 96374; 96375; 96376; 99284; J7030; Q9967; A4216; J2405

== ENCOUNTER → 2023-08-04 | Outpatient (CLI) | payer BC, SELFPAY ==
--- NOTE | 2023-08-04 16:19 | RAD_ITS ---
STUDY: X-RAY CHEST REASON FOR EXAM: Male, 38 years old. WHEEZING TECHNIQUE: PA and lateral views of the chest. COMPARISON: Comparison is made with prior study dated April 02, 2018. FINDINGS: Findings suggestive of a lingular infiltrate. There is no demonstrated pleural abnormality. Sternal cerclage wires are present from a prior sternotomy. Normal mediastinum and jb. Normal visualized pulmonary arteries. Aneurysmal dilatation of the descending thoracic aorta and prominence of the aortic knob. This is unchanged. Normal visualized thoracic spine. Normal visualized ribs, clavicles, and shoulders. There is no demonstrated abnormality of the visualized soft tissue structures of the upper abdomen. RAD/Chest PA and Lateral IMPRESSION: Findings suggestive of a lingular infiltrate. Prior midline sternotomy. Aneurysmal dilatation of the ascending thoracic aorta and aortic knob. Electronically Signed: Niko Gallagher MD at 12:21 EST ,
== END | disposition home or self-care (01) ==
LOC: MTRAD 16:18
PROVIDERS: PCP Family Medicine; Referring Provider Family Medicine; Visit Provider Family Medicine
DX: J18.9 Pneumonia, unspecified organism (principal)
CPT/HCPCS: 71046

== ENCOUNTER → 2023-09-22 | Outpatient (CLI) | payer BC, SELFPAY ==
--- NOTE | 2023-09-22 16:00 | RAD_ITS ---
STUDY: X-RAY CHEST REASON FOR EXAM: Male, 38 years old. FU CXR POST PNA, COUGH TECHNIQUE: PA and lateral views of the chest. COMPARISON: 08/04/2023. FINDINGS: Mild pectus excavatum . The lungs are clear and expanded. There is no demonstrated pleural abnormality. Normal size heart. Normal mediastinum and jb. Normal visualized pulmonary arteries. Normal visualized aortic arch and descending thoracic aorta. Normal visualized thoracic spine. Normal visualized ribs, clavicles, and shoulders. There is no demonstrated abnormality of the visualized soft tissue structures of the upper abdomen. RAD/Chest PA and Lateral IMPRESSION: No acute cardiopulmonary disease. Electronically Signed: Nicky Miller MD at 17:11 EST ,
--- OUTSIDE RECORDS SUMMARY | 2023-09-22 18:20 | XMS RPT_ITS | CCD ---
Author Name Unknown Address [address] [facility] [address] [address] [place] [address] Organization [facility] Care Team Providers Care Grade And Center Marker Name Role Phone Major CLOUD, Fili A Primary Care Provider NO ZARATE Referring Unavailable MAJOR, FILI A Primary Care Unavailable NO ZARATE Attending Unavailable TESSA, NO Attending Unavailable TESSA, NO Referring Unavailable MAJOR, FILI A Primary Care Unavailable Major CLOUD, Fili A Primary Care Provider Soham SINGH, Jannie Unavailable SELF, SELF Referring Unavailable ELAINE ARECHIGA Attending Unavailable MAJOR, FILI A Primary Care Unavailable Soham SINGH, Jannie Unavailable MAJOR, FILI A Primary Care Unavailable JANNIE PULIDO Attending Unavailable MAJOR, FILI A Primary Care Unavailable JANNIE PULIDO Referring Unavailable FILI GONSALVES A Primary Care Unavailable FILI GONSALVES A Primary Care Unavailable Aris SINGH, Mayi Unavailable Medications Current Medications Medication Drug Class(es) Dates Sig (Normalized) Sig (Original) amoxicillin 875 mg / clavulanate 125 mg oral tablet (1 source) Penicillin-class Antibacterial Start: 09-09-2022 End: 09-16-2022 take 1 tablet by mouth twice daily amoxicillin-clav ulanic acid (AUGMENTIN) 875-125 mg per tablet Indications: Bacterial sinusitis Take 1 tablet by mouth twice daily for 7 days. 14 tablet 0 09/09/2022 09/16/2022 Active Completed/Discontinued Medications Medication Drug Class(es) Dates Sig (Normalized) Sig (Original) 24 hr buPROPion hydrochloride 150 mg extended release oral tablet (10 sources) Aminoketone Start: 03-16-2017 buPROPion XL (WELLBUTRIN XL) 150 mg 24 hr tablet escitalopram 10 mg oral tablet (10 sources) Serotonin Reuptake Inhibitor Start: 12-04-2014 take 1 tablet by mouth once daily escitalopram oxalate (LEXAPRO) 10 mg tablet Take 1 tablet by mouth once daily. 0 12/04/2014 Active Problems Problem Classification Problem Date Documented Date Episodic/Chronic Administrative/social admission (2 sources) Discharge status; Translations: [Encounter for administrative examinations, unspecified] Onset: 08-26-2023 08-26-2023 Episodic Cardiac and circulatory congenital anomalies (20 sources) Coarctation of aorta; Translations: [Coarctation of aorta] Onset: 11-22-2005 08-16-2008 Chronic Heart valve disorders (1 source) Aortic valve stenosis; Translations: [Nonrheumatic aortic (valve) stenosis] 04-11-2023 Chronic Hemorrhoids (2 sources) Unspecified hemorrhoids; Translations: [Unspecified hemorrhoids] Onset: 05-04-2023 Episodic Open wounds of extremities (1 source) Injury of lower extremity; Translations: [Unspecified open wound, right lower leg, initial encounter] Episodic Other upper respiratory infections (1 source) Bacterial sinusitis; Translations: [Chronic sinusitis, unspecified] Chronic Other upper respiratory infections (1 source) Sore throat symptom; Translations: [Acute pharyngitis, unspecified] Episodic Results Test Name Value Interpretation Reference Range Facil ity Vital Signs Date Time Vital Sign Value Performing Clinician Xiomara miller 01-27-2023 13:55-0400 Body height 176.5 cm Jannie Pulido MD Work Phone: [facility] 01-27-2023 13:55-0400 Body temperature 97.9 [degF] Jannie Pulido MD Work Phone: [facility] 01-27-2023 13:55-0400 Body weight 88.9 kg Jannie Pulido MD Work Phone: [facility] 01-27-2023 13:55-0400 Diastolic blood pressure 94 mm[Hg] Jannie Pulido MD Work Phone: [facility] 01-27-2023 13:55-0400 Heart rate 91 /min Jannie Puldio MD Work Phone: [facility] 01-27-2023 13:55-0400 Respiratory rate 16 /min Jannie Pulido MD Work Phone: [facility] 01-27-2023 13:55-0400 SaO2% (BldA) [Mass fraction] 96 % Jannie Pulido MD Work Phone: [facility] 01-27-2023 13:55-0400 Systolic blood pressure 133 mm[Hg] Jannie Pulido MD Work Phone: [facility] 01-11-2023 07:32-0400 Body temperature 97 [degF] Linda Athy PA-C Work Phone: [facility] 01-11-2023 07:32-0400 Body weight 90.72 kg Linda Athy PA-C Work Phone: [facility] 01-11-2023 07:32-0400 Diastolic blood pressure 68 mm[Hg] Linda Athy PA-C Work Phone: [facility] 01-11-2023 07:32-0400 Heart rate 88 /min Linda Athy PA-C Work Phone: [facility] 01-11-2023 07:32-0400 Respiratory rate 16 /min Linda Athy PA-C Work Phone: [facility] 01-11-2023 07:32-0400 SaO2% (BldA) [Mass fraction] 97 % Linda Athy PA-C Work Phone: [facility] 01-11-2023 07:32-0400 Systolic blood pressure 122 mm[Hg] Linda Athy PA-C Work Phone: [facility] 09-09-2022 08:12-0500 Body temperature 98.01 [degF] Gerri Gage-Abel RADIOGRAPHER CARDIAC CATHETERIZATION.FOOD AND DRUG INSPECTOR Work Phone: [facility] 09-09-2022 08:12-0500 Body weight 88.63 kg Gerri Praisler-Wood RADIOGRAPHER CARDIAC CATHETERIZATION.FOOD AND DRUG INSPECTOR Work Phone: [facility] 09-09-2022 08:12-0500 Diastolic blood pressure 82 mm[Hg] Gerri Praisler-Wood RADIOGRAPHER CARDIAC CATHETERIZATION.FOOD AND DRUG INSPECTOR Work Phone: [facility] 09-09-2022 08:12-0500 Heart rate 72 /min Gerri Praisler-Wood RADIOGRAPHER CARDIAC CATHETERIZATION.FOOD AND DRUG INSPECTOR Work Phone: [facility] 09-09-2022 08:12-0500 Respiratory rate 18 /min Gerri Praisler-Wood RADIOGRAPHER CARDIAC CATHETERIZATION.FOOD AND DRUG INSPECTOR Work Phone: [facility] 09-09-2022 08:12-0500 SaO2% (BldA) [Mass fraction] 97 % Gerri Praisler-Wood RADIOGRAPHER CARDIAC CATHETERIZATION.FOOD AND DRUG INSPECTOR Work Phone: [facility] 09-09-2022 08:12-0500 Systolic blood pressure 120 mm[Hg] Gerri Praisler-Wood RADIOGRAPHER CARDIAC CATHETERIZATION.FOOD AND DRUG INSPECTOR Work Phone: [facility] 05-06-2022 09:15-0400 Body temperature 98.1 [degF] Gal Bhakta MD Work Phone: [facility] 05-06-2022 09:15-0400 Body weight 87.45 kg Gal Bhakta MD Work Phone: [facility] 05-06-2022 09:15-0400 Diastolic blood pressure 80 mm[Hg] Gal Bhakta MD Work Phone: [facility] 05-06-2022 09:15-0400 Heart rate 82 /min Gal Bhakta MD Work Phone: [facility] 05-06-2022 09:15-0400 Respiratory rate 16 /min Gal Bhakta MD Work Phone: [facility] 05-06-2022 09:15-0400 SaO2% (BldA) [Mass fraction] 98 % Gal Bhakta MD Work Phone: [facility] 05-06-2022 09:15-0400 Systolic blood pressure 110 mm[Hg] Gal Bhakta MD Work Phone: [facility] Encounters Encounter Date Encounter Type Care Provider Facility Start: 09-08-2023 Orders Only Patricia chan APRN.CNP Work Phone: [facility] [place] Procedures Date Procedure Procedure Detail Performing Clinician Start: 05-06-2022 STREP A MOLECULAR (POC) Gal Bhakta MD Work Phone: Plan of Treatment Date Care Activity Detail Author Start: 01-11-2033 Urine microalbumin profile [facility] Start: 08-29-2023 End: 10-29-2023 CBC W Auto Differential panel - Blood CBC + DIFF Lab Routine Aortic valve stenosis, etiology of cardiac valve disease unspecified Expected: 08/29/2023, Expires: 10/29/2023 [facility] Work Phone: Immunizations Immunization Date Immunization Notes Care Provider Fa cili 01-11-2023 tetanus toxoid, redu matthew diphtheria toxoid, and acellular pertussis vaccine, adsorbed Linda Garcia PA-C Work Phone: [facility] 08-25-2020 influenza virus vaccine, unspecified formulation Karey Donaldson Work Phone: [facility] 08-16-2008 hepatitis A vaccine, unspecified formulation Gal Bhakta MD Work Phone: [facility] Work Phone: 08-16-2008 hepatitis B vaccine, adult dosage Gal Bhakta MD Work Phone: [facility] Work Phone: 08-16-2008 influenza virus vaccine, unspecified formulation Gal Bhakta MD Work Phone: [facility] Work Phone: 08-16-2008 hepatitis B vaccine, unspecified formulation Gal Bhakta MD Work Phone: [facility] 07-05-2008 hepatitis B vaccine, adult dosage Gal Bhakta MD Work Phone: [facility] Work Phone: 07-05-2008 tetanus toxoid, redu matthew diphtheria toxoid, and acellular pertussis vaccine, adsorbed Gal Bhakta MD Work Phone: [facility] Work Phone: 04-18-2000 diphtheria, tetanus toxoids and acellular pertussis vaccine Gal Bhakta MD Work Phone: [facility] Work Phone: 03-31-2000 haemophilus influenz ae type b vaccine, HbOC conjugate Gal Bhakta MD Work Phone: [facility] Work Phone: 03-31-2000 measles, mumps and rubella virus vaccine Gal Bhakta MD Work Phone: [facility] Work Phone: 01-12-1989 haemophilus influenz ae type b vaccine, HbOC conjugate Gal Bhakta MD Work Phone: [facility] Work Phone: 01-12-1989 tetanus and diphther ia toxoids, not adsorbed, for adult use Gal Bhakta MD Work Phone: [facility] Work Phone: 01-10-1989 diphtheria, tetanus toxoids and acellular pertussis vaccine Gal Bhakta MD Work Phone: [facility] Work Phone: 01-10-1989 poliovirus vaccine, inactivated Gal Bhakta MD Work Phone: [facility] Work Phone: 10-20-1988 measles, mumps and rubella virus vaccine Gal Bhakta MD Work Phone: [facility] Work Phone: 02-20-1988 diphtheria, tetanus toxoids and acellular pertussis vaccine Gal Bhakta MD Work Phone: [facility] Work Phone: 02-20-1988 poliovirus vaccine, inactivated Gal Bhakta MD Work Phone: [facility] Work Phone: 02-20-1988 tetanus and diphther ia toxoids, not adsorbed, for adult use Gal Bhakta MD Work Phone: [facility] Work Phone: 1985 diphtheria, tetanus toxoids and acellular pertussis vaccine Gal Bhakta MD Work Phone: [facility] Work Phone: 1985 poliovirus vaccine, inactivated Gal Bhakta MD Work Phone: [facility] Work Phone: 1985 tetanus and diphther ia toxoids, not adsorbed, for adult use Gal Bhakta MD Work Phone: [facility] Work Phone: 1985 diphtheria, tetanus toxoids and acellular pertussis vaccine Gal Bhakta MD Work Phone: [facility] Work Phone: 1985 poliovirus vaccine, inactivated Gal Bhakta MD Work Phone: [facility] Work Phone: Payers Date Payer Category Payer Unknown [employer] PPO OOS [id number] 2023-Present [phone] [address] [place] [address] PPO [id number] 2023 Unknown [id number] 2021 Private Health Insurance [id number] 2021 Private Health Insurance [id number] 1985 Unknown [id number] 1987 Unknown [id number] 1987 Unknown [id number] 1987 Unknown [id number] Social History Date Type Detail Facility Start: 05-06-2022 Tobacco smoking stat us MDIS Never smoked tobacco [facility] Start: 05-06-2022 Tobacco use and exposure Smoke less tobacco non-user [facility] Start: 05-06-2022 End: 01-27-2023 Alcohol intake Current non-drinker of alcohol (finding) [facility] Start: 1985 Sex Assigned At Not on file [facility] Start: 04-26-2022 End: 05-06-2022 Exposure to SARS-CoV-2 (event) Not sure [facility] Start: 01-27-2023 History of Social function [facility] Start: 01-27-2023 Tobacco use panel [facility] National Score (1-10 0), lower number is lower risk 35 [facility] Clinical Notes 05-06-2022 to 03-14-2023 Telephone Encounter - Geo Torres - 03/14/2023 4:22 PM EDTTelephone Encounter - Fanta Hurt - 03/14/2023 2:15 PM Dionisio Pulido MD - 02/14/2023 7:07 PM EDTPatient Instructions Note Date & Type Note Facility 03-14-2023 Miscellaneous Notes Images from the original note were not included. INN Finish E-AETNA/AETNA CHOICE POS II AETNA/AETNA CHOICE POS II is a coverage that is OON for the following location/s. Create an OON referral Patient cannot be scheduled until financially cleared: , , , , , , , , , , , , , , , , , , , , [place] , , , , , Please advise if insurance is IN or OON documented in this encounter [facility] 02-14-2023 Note HNO ID: [id number] Author: Jannie Pulido MD Service: ? Author Type: Physician Type: Progress Notes Filed: 02/14/2023 7:19 PM Note Text: 01/27/2023 Dagoberto Arteaga 1985 37 year old Patient presents with: Consult Primary Care Provider: Fili Gonsalves DO Referring Provider: Jannie Pulido I meet with patient to review the patient's medical condition, options for treatment, my expectations and terminal operations manager goals, as is depicted in the diagram and in my note below. All questions were answered by patient, seemed to understand the plan. Surgical decision making during consultation Yes Total time > 40 min, consultation > 40 min. 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1985 Requested By: TESSA Order Number: [id number] Reading MD: No Zarate MD Measurements Intervals [place] Rate: 83 P: 21 FL: 181 QRS: -10 QRSD: 104 T: 26 QT: 397 QTc: 467 Interpretive Statements Sinus rhythm Possible biatrial enlargement Leftward axis Artifact ICD: Q25.1 Coarctation of aorta ICD: Q23.0 Congenital stenosis of aortic valve Electronically Signed On 12-31-2022 8:53:13 EDT by No Zarate MD Results for orders placed or performed in visit on 12/30/22 Echo Limited/F/U/CHD Narrative [facility] [place] [address] [email or web address] --- Congenital Transthoracic Echocardiogram Report M-mode, limited 2D, limited spectral Doppler, and color Doppler PATIENT: Dagoberto Arteaga STUDY DATE/TIME: Dec 30 2022 2:55PM HEIGHT: 174.5cm : 1985 WEIGHT: 87.3kg AGE: 37yr BSA/BMI: 2.03m2 / 28.7kg/m2 GENDER: M BP: 119 / 81 LOCATION: [facility] REFERRING PHYSICIAN: No Zarate MD ORDERING PROVIDER: No Zarate MD READING PHYSICIAN: No Zarate MD FLOOR SURFACER: JENNIFER Wallace --- SUMMARY: 1. Aortic valve: The valve is bicuspid. There is mild stenosis. Peak Doppler gradient 29 mm Hg, mean gradient 15 mmHg. Trivial regurgitation. 2. Aorta: The aorta is without evidence of coarctation. There is dilation of the ascending aorta and aortic root (aortic sinuses 41 mm, ascending aorta 47.5 mm - ascending aorta not fully visualized). 3. Left ventricle: The cavity size is normal. Wall thickness is normal. Systolic function is quantitatively normal. 4. S/P coarctation of aorta repair (). 5. S/P surgical aortic valvotomy (). 6. S/P aortic balloon valvuloplasty (06/25). 7. S/P atrial flutter ablation (08/02/2018). --- REASON FOR EXAM: S/P Cardiac Ablation; evaluate function- hx-CoA repair, Surgical Valvotomy, Aorta balloon. --- STUDY AND PROCEDURE DATA: Procedure Description: Limited/F/U/CHD ([id number]) . Study status: Routine. Location: Echo laboratory. Procedure: Transthoracic echocardiography was performed. The study was technically limited due to poor acoustic window availability, lung interference, and body habitus. Patient status: Outpatient. Blood pressure: 119/81 --- FINDINGS: ANATOMIC RELATIONSHIPS - Normal atrial situs. Ventricular d-loop. Normally related great vessels. VEINS AND ATRIA Atrial septum - No evidence for a significant atrial septal defect. Left atrium - The atrium is normal in size. Right atrium - The atrium is normal in size. Systemic veins - Superior and inferior caval veins return to the right atrium. No persistent left superior caval vein is seen, there is no coronary sinus dilation. Pulmonary veins: Normal pulmonary venous return. Normal phasic pulmonary vein Doppler. A-V CANAL Tricuspid valve - The valve is structurally normal. - There is no evidence for stenosis. There is trace regurgitation. Mitral valve - The valve is structurally normal. No echocardiographic evidence for prolapse. - There is no evidence for stenosis. There is no regurgitation. VENTRICLES Right ventricle - The cavity size is normal. Wall thickness is normal. Systolic function is qualitatively normal. Ventricular septum - There is no evidence of a ventricular septal defect. Left ventricle - The cavity size is normal. Wall thickness is normal. Systolic function is quantitatively normal. The endocardial fractional shortening (MM) is 31%. The ejection fraction (MM, Teichholz) is 57%. CONOTRUNCUS Aortic valve - The valve is bicuspid. - There is mild stenosis. Peak Doppler gradient 29 mm Hg, mean gradient 15 mmHg. Triv (more content not included)... [facility] 02-14-2023 History of Presen t illness Narrative 01/27/2023 Dagoberto Arteaga 1985 37 year old Patient presents with: Consult Primary Care Provider: Fili Gonsalves DO Referring Provider: Jannie Pulido I meet with patient to review the patient's medical condition, options for treatment, my expectations and terminal operations manager goals, as is depicted in the diagram and in my note below. All questions were answered by patient, seemed to understand the plan. Surgical decision making during consultation Yes Total time > 40 min, consultation > 40 min. 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1985 Requested By: TESSA Order Number: [id number] Hernandez MD: No Zarate MD Measurements Intervals [place] Rate: 83 P: 21 FL: 181 QRS: -10 QRSD: 104 T: 26 QT: 397 QTc: 467 Interpretive Statements Sinus rhythm Possible biatrial enlargement Leftward axis Artifact ICD: Q25.1 Coarctation of aorta ICD: Q23.0 Congenital stenosis of aortic valve Electronically Signed On 12-31-2022 8:53:13 EDT by No Zarate MD Results for orders placed or performed in visit on 12/30/22 Echo Limited/F/U/[place] [address] [email or web address] --- Congenital Transthoracic Echocardiogram Report M-mode, limited 2D, limited spectral Doppler, and color Doppler PATIENT: Dagoberto Arteaga STUDY DATE/TIME: Dec 30 2022 2:55PM HEIGHT: 174.5cm : 1985 WEIGHT: 87.3kg AGE: 37yr BSA/BMI: 2.03m^2 / 28.7kg/m^2 GENDER: M BP: 119 / 81 LOCATION: [facility] REFERRING PHYSICIAN: No Zarate MD ORDERING PROVIDER: MD HERNANDEZ Trinidad PHYSICIAN: No Zarate MD FLOOR SURFACER: JENNIFER Wallace --- SUMMARY: 1. Aortic valve: The valve is bicuspid. There is mild stenosis. Peak Doppler gradient 29 mm Hg, mean gradient 15 mmHg. Trivial regurgitation. 2. Aorta: The aorta is without evidence of coarctation. There is dilation of the ascending aorta and aortic root (aortic sinuses 41 mm, ascending aorta 47.5 mm - ascending aorta not fully visualized). 3. Left ventricle: The cavity size is normal. Wall thickness is normal. Systolic function is quantitatively normal. 4. S/P coarctation of aorta repair (). 5. S/P surgical aortic valvotomy (). 6. S/P aortic balloon valvuloplasty (06/25). 7. S/P atrial flutter ablation (08/02/2018). --- REASON FOR EXAM: S/P Cardiac Ablation; evaluate function- hx-CoA repair, Surgical Valvotomy, Aorta balloon. --- STUDY AND PROCEDURE DATA: Procedure Description: Limited/F/U/CHD ([id number]) . Study status: Routine. Location: Echo laboratory. Procedure: Transthoracic echocardiography was performed. The study was technically limited due to poor acoustic window availability, lung interference, and body habitus. Patient status: Outpatient. Blood pressure: 119/81 --- FINDINGS: ANATOMIC RELATIONSHIPS - Normal atrial situs. Ventricular d-loop. Normally related great vessels. VEINS AND ATRIA Atrial septum - No evidence for a significant atrial septal defect. Left atrium - The atrium is normal in size. Right atrium - The atrium is normal in size. Systemic veins - Superior and inferior caval veins return to the right atrium. No persistent left superior caval vein is seen, there is no coronary sinus dilation. Pulmonary veins: Normal pulmonary venous return. Normal phasic pulmonary vein Doppler. A-V CANAL Tricuspid valve - The valve is structurally normal. - There is no evidence for stenosis. There is trace regurgitation. Mitral valve - The valve is structurally normal. No echocardiographic evidence for prolapse. - There is no evidence for stenosis. There is no regurgitation. VENTRICLES Right ventricle - The cavity size is normal. Wall thickness is normal. Systolic function is qualitatively normal. Ventricular septum - There is no evidence of a ventricular septal defect. Left ventricle - The cavity size is normal. Wall thickness is normal. Systolic function is quantitatively normal. The endocardial fractional shortening (MM) is 31%. The ejection fraction (MM, Teichholz) is 57%. CONOTRUNCUS Aortic valve - The valve is bicuspid. - There is mild stenosis. Peak Doppler gradient 29 mm Hg, mean gradient 15 mmHg. Trivial regurgitation. There is very mild regurgitation. Pulmonic valve - The valve is structurally normal. - There is no stenosis. There is trivial regurgitation. Coronaries - The left main has a normal origin from the left sinus of Valsalva. The right coronary arises normally from the right sinus of Valsalva. No aneurysms or dilation is seen. GREAT ARTERIES Aorta - The arch is left-sided. Normal aortic arch branching pattern. - The aorta is without evidence of coarctation. - There is dilation of the ascending aorta and aortic root (aortic sinuses 41 mm, ascending aorta 47.5 mm - ascending aorta not fully visualized). Pulmonary arteries - Main pulmonary artery: The artery is of normal size. - Left pulmonary artery: The artery is of normal size. - Right pulmonary artery: The artery is of normal size. Systemic-pulmonary shunts - No evidence of a patent ductus arteriosus. PERICARDIUM - There is no significant pericardial effusion Plan: AVR, option given, mechanical, tissue, Ross and Eliseo Pulido MD ACTIVE PROBLEM LIST COARCTATION OF AORTA HYPOPLASIA AORTIC STENOSIS CONGENITAL PAST MEDICAL HISTORY Diagnosis Date Aortic valve disorders Aortic valve disorders PAST SURGICAL HISTORY Procedure Laterality Date PAST SURGICAL HISTORY OF [place] tooth extraction PAST SURGICAL HISTORY OF repair coarctation of the aorta PAST SURGICAL HISTORY OF 06/25 Balloon dilatation aorta PAST SURGICAL HISTORY OF Aortic valotomy ALLERGIES No Known Allergies Current Outpatient Medications Medication Sig Dispense Refill buPROPion XL (WELLBUTRIN XL) 150 mg 24 hr tablet losartan (COZAAR) 25 mg tablet escitalopram oxalate (LEXAPRO) 10 mg tablet Take 1 tablet by mouth once daily. 0 LORazepam (ATIVAN) 0.5 mg tab Take 1 tablet by mouth twice daily. No current facility-administered medications for this visit. Fili Luz Maria [address] [place] [address] Jannie Pulido [address] [facility] [id number] documented in this encounter [facility] 01-11-2023 Note HNO ID: [id number] Author: Linda Garcia PA-C Service: ? Author Type: Physician Physician Interventional Cardiologist Type: Progress Notes Filed: 01/11/2023 8:22 AM Note Text: This note was created using [employer]. Subjective Dagoberto Arteaga is a 37 year old male. HPI Patient presents with a right ankle wound for a week. He had got caught in the dog leash and had a burn to the back of his right ankle area. He did not feel it was healing like it should and the past day has had increased pain and some drainage from it. Some increased redness. No fever. He does have a history of congenital heart disease and had surgery for Coarctation of the aorta as well as aortic stenosis. States he typically does not have trouble healing however. Denies history of diabetes. He is not a smoker. No history of MRSA. Last tdap 2007. Review of Systems Constitutional: Negative. HENT: Negative. Respiratory: Negative. Cardiovascular: Negative. Gastrointestinal: Negative. Musculoskeletal: Right ankle wound All other systems reviewed and are negative. PAST MEDICAL HISTORY Diagnosis Date Aortic valve disorders Aortic valve disorders Current Outpatient Medications Medication Sig Dispense Refill buPROPion XL (WELLBUTRIN XL) 150 mg 24 hr tablet losartan (COZAAR) 25 mg tablet escitalopram oxalate (LEXAPRO) 10 mg tablet Take 1 tablet by mouth once daily. 0 LORazepam (ATIVAN) 0.5 mg tab Take 1 tablet by mouth twice daily. cephALEXin (KEFLEX) 500 mg capsule Take 1 capsule by mouth three times daily for 7 days. 21 capsule 0 No current facility-administered medications for this visit. PAST SURGICAL HISTORY Procedure Laterality Date PAST SURGICAL HISTORY OF [place] tooth extraction PAST SURGICAL HISTORY OF repair coarctation of the aorta PAST SURGICAL HISTORY OF 06/25 Balloon dilatation aorta PAST SURGICAL HISTORY OF Aortic valotomy FAMILY HISTORY Problem Relation Age of Onset None Mother None Father Social History Tobacco Use Smoking status: Never Smokeless tobacco: Never Substance Use Topics Alcohol use: No Drug use: No Objective BP 122/68 Pulse 88 Temp 36.1 ?C (97 ?F) Resp 16 Wt 90.7 kg (200 lb) SpO2 97% Physical Exam Vitals reviewed. Constitutional: Appearance: Normal appearance. HENT: Head: Normocephalic and atraumatic. Musculoskeletal: Feet: Comments: Patient has a wound on the posterior lower calf area of the right leg extending from the medial to lateral aspect of the leg. There is some minimal surrounding erythema around the wound and tenderness on palpation. It is deeper into the subcutaneous tissue. Has scabbed over. No lymphangitic streaking. No sign of abscess. Skin: General: Skin is warm and dry. Neurological: Mental Status: He is alert. Assessment and Plan ASSESSMENT/PLAN: 1. Leg wound, right, initial encounter - ICD9: 894.0, ICD10: S81.801A Patient has had some increased pain and redness over the past day, could have a early infection versus just inflammation from healing. I will start him on Keflex. Given Tdap update. Follow-up with PCP if not improving. Patient agreeable with plan. Linda Garcia PA-C [facility] 01-11-2023 History of Presen t illness Narrative Images from the original note were not included. This note was created using NoteWriter. Subjective Dagoberto Arteaga is a 37 year old male. HPI Patient presents with a right ankle wound for a week. He had got caught in the dog leash and had a burn to the back of his right ankle area. He did not feel it was healing like it should and the past day has had increased pain and some drainage from it. Some increased redness. No fever. He does have a history of congenital heart disease and had surgery for Coarctation of the aorta as well as aortic stenosis. States he typically does not have trouble healing however. Denies history of diabetes. He is not a smoker. No history of MRSA. Last tdap 2007. Review of Systems Constitutional: Negative. HENT: Negative. Respiratory: Negative. Cardiovascular: Negative. Gastrointestinal: Negative. Musculoskeletal: Right ankle wound All other systems reviewed and are negative. PAST MEDICAL HISTORY Diagnosis Date Aortic valve disorders Aortic valve disorders Current Outpatient Medications Medication Sig Dispense Refill buPROPion XL (WELLBUTRIN XL) 150 mg 24 hr tablet losartan (COZAAR) 25 mg tablet escitalopram oxalate (LEXAPRO) 10 mg tablet Take 1 tablet by mouth once daily. 0 LORazepam (ATIVAN) 0.5 mg tab Take 1 tablet by mouth twice daily. cephALEXin (KEFLEX) 500 mg capsule Take 1 capsule by mouth three times daily for 7 days. 21 capsule 0 No current facility-administered medications for this visit. PAST SURGICAL HISTORY Procedure Laterality Date PAST SURGICAL HISTORY OF [place] tooth extraction PAST SURGICAL HISTORY OF repair coarctation of the aorta PAST SURGICAL HISTORY OF 06/25 Balloon dilatation aorta PAST SURGICAL HISTORY OF Aortic valotomy FAMILY HISTORY Problem Relation Age of Onset None Mother None Father Social History Tobacco Use Smoking status: Never Smokeless tobacco: Never Substance Use Topics Alcohol use: No Drug use: No Objective BP 122/68 Pulse 88 Temp 36.1 C (97 F) Resp 16 Wt 90.7 kg (200 lb) SpO2 97% Physical Exam Vitals reviewed. Constitutional: Appearance: Normal appearance. HENT: Head: Normocephalic and atraumatic. Musculoskeletal: Feet: Comments: Patient has a wound on the posterior lower calf area of the right leg extending from the medial to lateral aspect of the leg. There is some minimal surrounding erythema around the wound and tenderness on palpation. It is deeper into the subcutaneous tissue. Has scabbed over. No lymphangitic streaking. No sign of abscess. Skin: General: Skin is warm and dry. Neurological: Mental Status: He is alert. Assessment and Plan ASSESSMENT/PLAN: 1. Leg wound, right, initial encounter - ICD9: 894.0, ICD10: S81.801A Patient has had some increased pain and redness over the past day, could have a early infection versus just inflammation from healing. I will start him on Keflex. Given Tdap update. Follow-up with PCP if not improving. Patient agreeable with plan. Linda Garcia PA-C documented in this encounter [facility] 09-09-2022 Note HNO ID: [id number] Author: Gerri Petit APRN.FOOD AND DRUG INSPECTOR Service: ? Author Type: Nurse Practitioner Type: Progress Notes Filed: 09/09/2022 8:25 AM Note Text: Subjective Sinus Problem Associated symptoms include congestion, coughing and headaches. Pertinent negatives include no chills, fever, myalgias or sore throat. Dagoberto Arteaga is a 37 year old male who presents with sinus congestion, drainage and cough for the past week. When he blows his nose there is blood in the mucous. He had a viral illness last week and most symptoms have resolved except the sinus symptoms are persisting. He has not had a recent fever. He has been taking Dayquil and Nyquil and Tylenol. Review of Systems Constitutional: Negative for chills and fever. HENT: Positive for congestion and sinus pain. Negative for ear pain and sore throat. Respiratory: Positive for cough. Cardiovascular: Negative. Musculoskeletal: Negative for myalgias. Neurological: Positive for headaches. BP 120/82 Pulse 72 Temp 36.7 ?C (98 ?F) (Tympanic) Resp 18 Wt 88.6 kg (195 lb 6.4 oz) SpO2 97% PAST MEDICAL HISTORY Diagnosis Date Aortic valve disorders Aortic valve disorders PAST SURGICAL HISTORY Procedure Laterality Date PAST SURGICAL HISTORY OF [place] tooth extraction PAST SURGICAL HISTORY OF repair coarctation of the aorta PAST SURGICAL HISTORY OF 06/25 Balloon dilatation aorta PAST SURGICAL HISTORY OF Aortic valotomy ALLERGIES Patient has no known allergies. MEDICATIONS buPROPion XL (WELLBUTRIN XL) 150 mg 24 hr tablet losartan (COZAAR) 25 mg tablet escitalopram oxalate (LEXAPRO) 10 mg tablet Take 1 tablet by mouth once daily. LORazepam (ATIVAN) 0.5 mg tab Take 1 tablet by mouth twice daily. amoxicillin-clavulanic acid (AUGMENTIN) 875-125 mg per tablet Take 1 tablet by mouth twice daily for 7 days. FAMILY HISTORY Problem Relation Age of Onset None Mother None Father Social History Tobacco Use Smoking status: Never Smokeless tobacco: Never Substance Use Topics Alcohol use: No Drug use: No Objective Physical Exam Vitals and nursing note reviewed. HENT: Right Ear: Tympanic membrane, ear canal and external ear normal. Left Ear: Tympanic membrane, ear canal and external ear normal. Nose: Mucosal edema, congestion and rhinorrhea present. Mouth/Throat: Pharynx: Uvula midline. No oropharyngeal exudate or posterior oropharyngeal erythema. Cardiovascular: Rate and Rhythm: Normal rate and regular rhythm. Heart sounds: Normal heart sounds. Pulmonary: Effort: Pulmonary effort is normal. No respiratory distress. Breath sounds: Normal breath sounds. No wheezing or rales. Musculoskeletal: Cervical back: Neck supple. Lymphadenopathy: Cervical: No cervical adenopathy. Skin: General: Skin is warm and dry. Findings: No erythema or rash. Neurological: Mental Status: He is alert. ASSESSMENT/PLAN: 1. Bacterial sinusitis - ICD9: 473.9, 041.9, ICD10: J32.9, B96.89 - Will begin treatment with as per antibiotic as written, see orders - The patient should also be given flonase nasal spray for the first 5-7 days of treatment. - Supportive care with plenty of fluids, rest, and analgesia prn. - AMOXICILLIN 875 MG-POTASSIUM CLAVULANATE 125 MG TABLET - Follow-up with your PCP in 3-5 days if symptoms have not improved or sooner if symptoms worsen - Discussed red flags and need for immediate medical evaluation if any occur. - Discussed supportive care treatment with fluids, rest and analgesia. - Discussed expected course of illness Gerri Petit APRN.[facility] 09-09-2022 History of Presen t illness Narrative Subjective Sinus Problem Associated symptoms include congestion, coughing and headaches. Pertinent negatives include no chills, fever, myalgias or sore throat. Dagoberto Arteaga is a 37 year old male who presents with sinus congestion, drainage and cough for the past week. When he blows his nose there is blood in the mucous. He had a viral illness last week and most symptoms have resolved except the sinus symptoms are persisting. He has not had a recent fever. He has been taking Dayquil and Nyquil and Tylenol. Review of Systems Constitutional: Negative for chills and fever. HENT: Positive for congestion and sinus pain. Negative for ear pain and sore throat. Respiratory: Positive for cough. Cardiovascular: Negative. Musculoskeletal: Negative for myalgias. Neurological: Positive for headaches. BP 120/82 Pulse 72 Temp 36.7 C (98 F) (Tympanic) Resp 18 Wt 88.6 kg (195 lb 6.4 oz) SpO2 97% PAST MEDICAL HISTORY Diagnosis Date Aortic valve disorders Aortic valve disorders PAST SURGICAL HISTORY Procedure Laterality Date PAST SURGICAL HISTORY OF [place] tooth extraction PAST SURGICAL HISTORY OF repair coarctation of the aorta PAST SURGICAL HISTORY OF 06/25 Balloon dilatation aorta PAST SURGICAL HISTORY OF Aortic valotomy ALLERGIES Patient has no known allergies. MEDICATIONS buPROPion XL (WELLBUTRIN XL) 150 mg 24 hr tablet losartan (COZAAR) 25 mg tablet escitalopram oxalate (LEXAPRO) 10 mg tablet Take 1 tablet by mouth once daily. LORazepam (ATIVAN) 0.5 mg tab Take 1 tablet by mouth twice daily. amoxicillin-clavulanic acid (AUGMENTIN) 875-125 mg per tablet Take 1 tablet by mouth twice daily for 7 days. FAMILY HISTORY Problem Relation Age of Onset None Mother None Father Social History Tobacco Use Smoking status: Never Smokeless tobacco: Never Substance Use Topics Alcohol use: No Drug use: No Objective Physical Exam Vitals and nursing note reviewed. HENT: Right Ear: Tympanic membrane, ear canal and external ear normal. Left Ear: Tympanic membrane, ear canal and external ear normal. Nose: Mucosal edema, congestion and rhinorrhea present. Mouth/Throat: Pharynx: Uvula midline. No oropharyngeal exudate or posterior oropharyngeal erythema. Cardiovascular: Rate and Rhythm: Normal rate and regular rhythm. Heart sounds: Normal heart sounds. Pulmonary: Effort: Pulmonary effort is normal. No respiratory distress. Breath sounds: Normal breath sounds. No wheezing or rales. Musculoskeletal: Cervical back: Neck supple. Lymphadenopathy: Cervical: No cervical adenopathy. Skin: General: Skin is warm and dry. Findings: No erythema or rash. Neurological: Mental Status: He is alert. ASSESSMENT/PLAN: 1. Bacterial sinusitis - ICD9: 473.9, 041.9, ICD10: J32.9, B96.89 - Will begin treatment with as per antibiotic as written, see orders - The patient should also be given flonase nasal spray for the first 5-7 days of treatment. - Supportive care with plenty of fluids, rest, and analgesia prn. - AMOXICILLIN 875 MG-POTASSIUM CLAVULANATE 125 MG TABLET - Follow-up with your PCP in 3-5 days if symptoms have not improved or sooner if symptoms worsen - Discussed red flags and need for immediate medical evaluation if any occur. - Discussed supportive care treatment with fluids, rest and analgesia. - Discussed expected course of illness Gerri Petit APRN.CNP documented in this encounter [facility] 09-09-2022 Instructions Gerri Petit APRN.CNP - 09/09/2022 8:20 AM EST Images from the original note were not included. ASSESSMENT/PLAN: 1. Bacterial sinusitis - ICD9: 473.9, 041.9, ICD10: J32.9, B96.89 - Will begin treatment with as per antibiotic as written, see orders - The patient should also be given flonase nasal spray for the first 5-7 days of treatment. - Supportive care with plenty of fluids, rest, and analgesia prn. - AMOXICILLIN 875 MG-POTASSIUM CLAVULANATE 125 MG TABLET - Follow-up with your PCP in 3-5 days if symptoms have not improved or sooner if symptoms worsen - Discussed red flags and need for immediate medical evaluation if any occur. - Discussed supportive care treatment with fluids, rest and analgesia. - Discussed expected course of illness Gerri Petit APRN.CNP Adult Sinusitis Patient Education What is Sinusitis? Sinusitis [zxbj-tny-pebi-tis] is inflammation of the sinuses or swelling of the lining of the sinus cavity or nose. During an infection the sinuses become blocked with fluid causing swelling of the lining of the sinuses. Symptoms: (viral and bacterial infections) Stuffy nose Runny nose Postnasal drip Fever Toothache Headache Tiredness Cough Sore throat Face and head pressure and or pain Common causes: 98% of sinus infections are viral caused by viruses. Risk Factors of Sinusitis Include: Allergies, air pollution, indoor humidity and outdoor temperature changes, andstructural changes in the nose may contribute to sinus pain, pressure and congestion. When to get help? Temperature greater than 100.4 F Symptoms lasting more than 10 days or worsening symptoms greater than 7-10 days. If you do not improve or worsen after a course of antibiotics, you should be re-examined. Diagnosis and Treatment: Your healthcare provider will ask a number of questions about your symptoms and how long they have occurred. If symptoms of sinusitis persist greater than 10 days, it is possible you have a bacterial sinus infection and an antibiotic is prescribed. If it is viral, antibiotics will not help. You may be instructed to take rhzk-oid-[id number] medications for symptoms. including fever reducers acetaminophen or ibuprofen, nasal saline spray, cough and cold preparations and decongestants as prescribed by the physician, nurse practitioner or physician embalmer assistant. Self-Care and Prevention: Rest Fluids for hydration Good hand washing Humidifier Avoid smoking and exposure to second hand smoke Avoid sick contacts documented in this encounter [facility] 07-22-2022 Note CARDIAC CATHETERIZAT ION CONFERENCE DISCUSSION Date of Discussion: 07/22/2022 Name: Dagoberto Arteaga : 1985 Age: 37 y.o. Bacteriology Research Assistant: Dr. Zarate Discussed by: Dr. Parr Discussion: Dagoberto is a 37 year old with bicuspid aortic valve and coarctation of the aorta status post coarctation of the aorta repair, surgical aortic valvuloplasty, and aortic balloon valvuloplasty. Recent cardiac MRI was reviewed demonstrating mild aortic insufficiency (regurgitant fraction 10%), left ventricular indexed end diastolic of 30 mL/sq m with normal ejection fraction of 59%, mild left ventricular hypertrophy, aortic root measurement of 40 x 40 mm, and ascending aorta of 51 x 49 mm. There is a small, unchanged pseudoaneurysm of the aortic arch with no residual arch obstruction. The aorta appears very proximal and possibly adherent to the sternum. Recommendations/Plan: At this time, there is borderline indication for surgery given ascending aorta dimensions. The aortic valve does not meet criteria for intervention at this time. Plan to repeat echocardiogram at upcoming office visit. Consider stress test to evaluate blood pressure response to exercise. Repeat axial imaging in 1 year. Plan to follow closely as absolute surgical indication is approaching. Summarized By: Elias Tse MD [facility] 05-06-2022 Miscellaneous Notes Phone call placed patient advised (see prior provider encounter) Patient verbalized understanding, agreed with plan of care. Lilliana Morton LPN Negative for covid please notify thank you documented in this encounter [facility] 05-06-2022 History of Presen t illness Narrative Patient presents with: Sore Throat: ST x 4 days HPI: Feeling sore throat for 5 days. Positive symptoms: sore throat, Negative symptoms: Cough, Nasal Congestion, Rhinorrhea, Fever, Body Aches, Headache, Nausea, Vomiting, Diarrhea, OTC: Nyquil, Dayquil PAST MEDICAL HISTORY Diagnosis Date Aortic valve disorders Aortic valve disorders MEDICATIONS: Current Outpatient Medications Medication Sig buPROPion XL (WELLBUTRIN XL) 150 mg 24 hr tablet losartan (COZAAR) 25 mg tablet escitalopram oxalate (LEXAPRO) 10 mg tablet Take 1 tablet by mouth once daily. LORazepam (ATIVAN) 0.5 mg tab Take 1 tablet by mouth twice daily. No current facility-administered medications for this visit. ALLERGIES: ALLERGIES No Known Allergies VITALS: BP 110/80 Pulse 82 Temp 36.7 C (98.1 F) (Tympanic) Resp 16 Wt 87.5 kg (192 lb 12.8 oz) SpO2 98% PHYSICAL EXAM: GEN: Pleasant, in no acute distress. HEENT: PERRL, EOMI, conjunctiva clear Ears: canals occluded by soft cerumen. Sinuses: non-tender frontal sinus, non-tender maxillary sinuses Throat: moist mucous membranes, pharyngeal erythema, no exudate Neck: supple, no thyromegaly, no lymphadenopathy HEART: regular rate and rhythm, no murmurs LUNGS: clear to auscultation, no wheezes or crackles, no increased WOB ASSESSMENT/PLAN: 1. Sore throat - ICD9: 462, ICD10: J02.9 - STREP A MOLECULAR (POC) - negative. - suspect viral pharyngitis, differential includes COVID-19. - Discussed supportive care treatment with home isolation, rest, lozenges, gargles, and analgesia. - 2019 CORONAVIRUS Gal Bhakta MD documented in this encounter [facility] Diagnosis Bacterial sinusitis- Primary Unspecified sinusitis (chronic) [facility] Diagnosis Leg wound, right, initial encounter- Primary [facility] Diagnosis AORTIC STENOSIS CONGENITAL- Primary Congenital stenosis of aortic valve [facility] Diagnosis Aortic valve stenosis, etiology of cardiac valve disease unspecified- Primary Congenital stenosis of aortic valve Coarctation of aorta Coarctation of aorta (preductal) (postductal) S/P repair of coarctation of aorta Personal history of (corrected) congenital malformations of heart and circulatory system S/P AVR Heart valve replaced by other means SOB (shortness of breath) Shortness of breath Pre-operative cardiovascular examination [facility] Diagnosis Coarctation of aorta (preductal) (postductal)- Primary Congenital stenosis of aortic valve Coarctation of aorta Coarctation of aorta (preductal) (postductal) S/P repair of coarctation of aorta Personal history of (corrected) congenital malformations of heart and circulatory system S/P AVR Heart valve replaced by other means SOB (shortness of breath) Shortness of breath Pre-operative cardiovascular examination documented in this encounter [facility] for referral (narrative)* Outpatient Procedure (Routine) - Authorized Specialty Diagnoses / Procedures Referred By Contsloan t Referred To Contact [facility] Diagnoses Aortic valve stenosis, etiology of cardiac valve disease unspecified Procedures ECG COMPLETE ECG ROUTINE ECG W/LEAST 12 LDS W/I&R Mayi Hurst MD [address] [place] [address] [facility] [id number] [place] [address] Referral ID Status Reason Start Date Expiration Date Visits Requested Visits Authorized [id number] Authorized Auto-Generat ed Referral 04/11/2023 04/10/2024 1 1 * Outpatient Procedure (Routine) - Authorized Specialty Diagnoses / Procedures Referred By Contac t Referred To Contact [facility] Diagnoses Aortic valve stenosis, etiology of cardiac valve disease unspecified Procedures ECHO SPECIALIST COMPLEX ADULT CONGENITAL ECHO TTHRC R-T 2D W/WOM-MODE COMPL SPEC&COLR D Mayi Hurst MD [address] [place] [address] [facility] [address] [address] Referral ID Status Reason Start Date Expiration Date Visits Requested Visits Authorized [id number] Authorized Auto-Generat ed Referral 04/11/2023 04/10/2024 1 1 [facility] Concerns Infection Onset Date Last Indicated Resolved Time COVID-19 Rule-Out 05/06/2022 05/06/2022 05/06/2022 7:17 PM EDT Summary Purpose Family History No Family History Records FoundNo Family History Records FoundNo Family History Records Found Advance Directives No Advanced Directives Records FoundNo Advanced Directives Records FoundNo Advanced Directives Records Found Additional Source Comments Source Comments (unrecognize d section and content) In the event this informatio n is protected by the Federal Confidentiality of Alcohol and Drug Abuse Patient Records regulations: The Federal rules restrict any use of the information to criminally investigate or prosecute any alcohol or drug abuse patient.[facility] the event this information is protected by the Federal Confidentiality of Alcohol and Drug Abuse Patient Records regulations: The Federal rules restrict any use of the information to criminally investigate or prosecute any alcohol or drug abuse patient.[facility] the event this information is protected by the Federal Confidentiality of Alcohol and Drug Abuse Patient Records regulations: The Federal rules restrict any use of the information to criminally investigate or prosecute any alcohol or drug abuse patient.[facility] the event this information is protected by the Federal Confidentiality of Alcohol and Drug Abuse Patient Records regulations: The Federal rules restrict any use of the information to criminally investigate or prosecute any alcohol or drug abuse patient.[facility] the event this information is protected by the Federal Confidentiality of Alcohol and Drug Abuse Patient Records regulations: The Federal rules restrict any use of the information to criminally investigate or prosecute any alcohol or drug abuse patient.[facility] the event this information is protected by the Federal Confidentiality of Alcohol and Drug Abuse Patient Records regulations: The Federal rules restrict any use of the information to criminally investigate or prosecute any alcohol or drug abuse patient.[facility] the event this information is protected by the Federal Confidentiality of Alcohol and Drug Abuse Patient Records regulations: The Federal rules restrict any use of the information to criminally investigate or prosecute any alcohol or drug abuse patient.[facility] the event this information is protected by the Federal Confidentiality of Alcohol and Drug Abuse Patient Records regulations: The Federal rules restrict any use of the information to criminally investigate or prosecute any alcohol or drug abuse patient.[facility] the event this information is protected by the Federal Confidentiality of Alcohol and Drug Abuse Patient Records regulations: The Federal rules restrict any use of the information to criminally investigate or prosecute any alcohol or drug abuse patient.[facility] the event this information is protected by the Federal Confidentiality of Alcohol and Drug Abuse Patient Records regulations: The Federal rules restrict any use of the information to criminally investigate or prosecute any alcohol or drug abuse patient.[facility] Reason for Visit (unrecogniz ed section and content) Reason Comments Results Reason Comments Sinus Problem Sinus, cough and luc inage-blowing blood x 1 week Reason Comments Wound Check right ankle x 1 week Reason Comments Referral Information Reason Comments Consult Reason Comments Insurance Authorization Care Teams (unrecognized sec tion and content) Grade And Center Marker Relationship Specialty Start Date End Date Fili Gonsalves DO [address] [place], [place] [id number] PCP - General Family Practice 01/06/17 Grade And Center Marker Relationship Specialty Start Date End Date Fili Gonsalves DO [address] [place], [place] [id number] PCP - General Family Medicine 01/06/17 Grade And Center Marker Relationship Specialty Start Date End Date Fili Gonsalves DO [address] [place], [place] [id number] PCP - General Family Medicine 01/06/17 Jannie Pulido MD [address] [place] [address] Surgeon Cardiac Surg 01/11/23 Grade And Center Marker Relationship Specialty Start Date End Date Fili Gonsalves DO [address] [place], [place] [id number] PCP - General Family Medicine 01/06/17 Jannie Pulido MD [address] [place] [address] Surgeon Cardiac Surg 01/11/23 Grade And Center Marker Relationship Specialty Start Date End Date MajorFili [address] [place], [place] [id number] PCP - General Family Medicine 01/06/17 Jannie Pulido MD [address] [place] [address] Surgeon Cardiac Surg 01/11/23 Grade And Center Marker Relationship Specialty Start Date End Date Fili Gonsalves DO [address] [place] [address] PCP - General Family Medicine 01/06/17 Jannie Pulido MD [address] [place] [address] Surgeon Cardiac Surg 01/11/23 Grade And Center Marker Relationship Specialty Start Date End Date Fili Gonsalves DO [address] [place] [address] PCP - General Family Medicine 01/06/17 Jannie Pulido MD [address] [place] [address] Surgeon Cardiac Surg 01/11/23 Grade And Center Marker Relationship Specialty Start Date End Date Fili Gonsalves DO [address] [place] [address] PCP - General Family Medicine 01/06/17 Jannie Pulido MD [address] [place] [address] Surgeon Cardiac Surg 01/11/23 Grade And Center Marker Relationship Specialty Start Date End Date Fili Gonsalves DO [address] [place] [address] PCP - General Family Medicine 01/06/17 Jannie Pulido MD [address] [place] [address] Surgeon Cardiac Surg 01/11/23 Mayi Hurst MD [address] [place] [address] Primary Staff Physician Cardiology 08/29/23 (unrecognized sect ion and content) No Status Records FoundNo Status Records FoundNo Status Records Found INFORMATION SOURCE (unrecogn ized section and content) DATE CREATED AUTHOR AUTHOR'S ORGANIZ ATION 05/05/2023 [facility] DATE CREATED AUTHOR AUTHOR'S ORGANIZ ATION 08/30/2023 [facility] FOR RECORDS PERTAINING TO PATIENTS WHO ARE OR HAVE BEEN ENROLLED IN A CHEMICAL DEPENDENCY/SUBSTANCEABUSE PROGRAM, SOME INFORMATION MAY BE OMITTED. This clinical summary was aggregated from multiple sources. Caution should be exercised in using it in the provision of clinical care. This summary normalizes information from multiple sources, and as a consequence, information in this document may materially change the coding, format and clinical context of patient data. In addition, data may be omitted in some cases. CLINICAL DECISIONS SHOULD BE BASED ON THE PRIMARY CLINICAL RECORDS. [employer] provides no warranty or guarantee of the accuracy or completeness of information in this document.
== END | disposition home or self-care (01) ==
LOC: MTRAD 15:58
PROVIDERS: PCP Family Medicine; Referring Provider Family Medicine; Visit Provider Family Medicine
DX: R05.9 Cough, unspecified (principal)
CPT/HCPCS: 71046

== ENCOUNTER → 2023-11-24 | Outpatient (CLI) | payer BC, SELFPAY ==
--- NOTE | 2023-11-24 08:56 | CR.HP_ITS ---
CR - History & Physical General Arrival date:: 11/24/23 Arrival time:: 08:56 Date of Referral:: 11/09/23 Date of CR Evaluation:: 11/24/23 Referring Physician: Dr. José Harrington Primary Diagnosis: Aortic Valve Replacement History of Present Cardiac Event Onset Date Heart valve replacement or repair:: Yes (onset 10/05/23) Medications Ambulatory Orders Medication Instructions Recorded aspirin 81 mg tablet,delayed 81 mg PO DAILY 09/04/18 release (Adult Aspirin Regimen) ondansetron HCl 4 mg tablet 4 mg PO PRN PRN Nausea 12/29/21 Diltiazem 2% / Lidocaine 5% #1 ea 07/30/22 ointment (compound) ferrous sulfate 325 mg (65 mg 325 mg PO DAILY 02/27/23 iron) tablet (iron) multivitamin 1 tab PO DAILY 02/27/23 bupropion HCl 150 mg 24 hr tablet, 150 mg PO QAM #90 tabs 06/27/23 extended release losartan 25 mg tablet mg PO 06/27/23 escitalopram oxalate 10 mg tablet 10 mg PO DAILY 90 days #90 tabs 08/30/23 lorazepam 0.5 mg tablet 0.5 mg PO DAILY PRN Anxiety #30 09/14/23 tabs Allergies Allergies No Known Allergies Allergy (Verified 07/20/23 08:58) Sleep Disorder Evaluation Hx of Sleep Apnea: No Do you snore loudly (louder than talking or can be heard through closed doors)?: No Do you often feel tired/ fatigued/ sleepy during daytime?: No Has anyone observed you stop breathing during sleep?: No History of Hypertension (for STOP score): No STOP Results: Negative Advanced Directives Advanced Directives Power of Supervisor [employer]: Yes Living Will: Yes Advance Directives Information Provided: Yes Advance Directives on File: Yes DNR Order?:: No Past Medical History Covid-19 Screening Physicial Symptoms Other Clinical Concerns Exposure Risk Pertinent Comorbidities Has a serious heart condition:: Yes Past Medical Illness Medical History Abnormal cardiac enzyme level Alcohol use Anxiety Aortic root dilation Aortic stenosis Atrial fibrillation Atrial flutter with rapid ventricular response Back pain Blood in the stool Cardiology follow-up encounter Congenital heart defect Depression MIGUELITO (generalized anxiety disorder) Heart disease Heartburn Hemorrhoids History of echocardiogram History of stress test Leg cramps Major depressive disorder Nausea Non-smoker Palpitations Vasovagal attack Wears glasses Past Surgical History Surgical History Bicuspid aortic valve Coarctation of aorta History of cardiac catheterization S/P RF ablation operation for arrhythmia Family History Summary Family History Father Anxiety Other Colon cancer Social History Smoking History Smoking Status: Never smoker Alcohol Use Alcohol Usage: Yes (occasional ) Substance Abuse Hx Substance Use: No Occupation Occupation (List type of work in comments):: Unemployed (hoping to have a job by next week) Hobbies, Recreation, Social Activities Hobbies: Other (photography, volunteer) Recreational Activities: I am able to engage in all my recreational activities Social Environment Status Marital Status: Current Living Arrangements Living Environment:: Family Children How many children do you have?: 2 Do any of your children live nearby?: Yes Safety Do you feel safe in your surroundings?: Yes Assistance Do you need any assistance at home?: no Review of Systems Review of Systems Hints Review of Present Symptoms: Reports Operative Discomfort, Dizziness/Lightheadedness, Fatigue, Appetite - Normal and Sleep - Normal; Denies Shortness of Breath at Rest, Shortness of Breath with Exertion, PVD, Angina, Wound Healing, Heart Arrhythmia/Irregularities, Appetite - Special Diet or Sexual Changes Pain Is Patient Pain Free?: No Pain Location: neck Pain Level: 4/10 Risk Factor Assessment Chief Complaint Chief Complaint: Aortic Valve Replacement Vital Signs Pulse Ox: 98 Blood Pressure: 110/80 Pulse Pulse Rate: 81 Hypertension Blood Pressure Sitting - Left Arm: 110/80 Stress Stress: Long-standing Obesity Height: 5 ft 10 in Weight:: 189 lb Weight in Pounds: 189.0 lbs Body Mass Index (BMI): 27.1 Physical Inactivity Physical Inactivity: Reg Exercise 30 min/day Risk Stratification Risk Guidelines: Lowest Risk: Risk Factor for Smoking, Moderate Risk: Risk Factor for Dyslipidemia, Risk Factor for Diabetes, Risk Factor for Obesity, Risk Factor for Hypertension and Risk Factor for Sedentary Lifestyle and Highest Risk: Risk Factor for Depression For Smoking Smoking Risk Guidelines For Dyslipidemia Dyslipidemia Risk Guidelines For Diabetes Mellitus Diabetes Risk Guidelines For Obesity/Overweight Obesity/Overweight Risk Guidelines For Hypertension Hypertension Risk Guidelines For Sedentary Lifestyle Sedentary Lifestyle Risk Guidelines For Depression Depression Risk Guidelines Family History Family History Father Anxiety Other Colon cancer Motivation Motivation to Participate On a scale of 1 to 10, how prepared are you to commit to attending program?: 8 What do you see as barriers to successfully being able to complete the program?: nothing What do you see as the benefits of succesfully completing the program? In other words, what do you hope to get out of participating in the program?: be in better shape to be with family Are there issues you are dealing with that will interfere with completing the program?: no Do you have a spouse or signficant other, family or friends who will help support you to complete the program?: yes
--- NOTE | 2023-11-24 09:02 | CR.ITP_ITS ---
Diagnosis General Information Admitting Diagnosis: Aortic Valve Replacement Personal Learning Style:: Audio/Visual Stage of change r/t lifestyle modifications:: Contemplation Gave educational material for:: Treating Heart Disease, How The Heart Works, Wh at it means to have Heart Disease, How Coronary Artery Disease is Diagnosed, Heart Procedures, What Heart Medications Do, Risk Factors & Modifications, Living an Active Life, Nutrition, Emotions & Heart Disease, Stress Management & Relaxation and Sleep Disorders & Heart Disease Education/Goals Cardiac Rehabilitation Goals Personal Goals: Initial Assessment: Improve management of stress and emotions and Improve energy level Scale for measuring improvement of personal goals Diagnosis & Disease Process Outcomes/Goals: Pt IDs own risk factors & lifestyle modifications by Session 10, Verbalizes symptoms of angina & response by session 3., Pt independently manages and Other Additional Outcomes/Goals: Plan/Interventions: Assist Pt to ID & engage in lifestyle modification to reduce CVD risk, Instruct on individual risk factors, Review symptoms of angina & emergency actions, Review secondary diagnosis & identify educational needs. and Other see comment 30 day Reassessments:: Not Met 30 day Reassessments:: Not Met 30 day Reassessments:: Not Met 30 day Reassessments:: Not Met Final Reassessments:: Not Met Safety Referral to Physical Therapy: No Referral to [facility] Case Management: No Fall Risk Assessed:: Yes Assistive Devices:: None Exercise - Initial Assessment Visit Date of Eval: 11/24/23 (initial eval ) Mets: Pre-: >3 METS for 30 minutes by discharge, >5 METS for 30 minutes by discharge, >7 METS for 30 minutes by discharge and Unable to meet goal due to: (see comment below) Physician Prescribed Exercise Modalities: Treadmill, Airdyne, NuStep, SciFit and Lateral [place] Frequency: 3x/week for 12 weeks [36 sessions] Intensity: 60-80% of age predicted maximum heart rate reserve Duration: 30 - 45 minutes Current METSs:: 3 Target Heart Rate:: 110-129 Resting Blood Pressure: 110/80 EKG Type: SR LBBB Outcomes & Goals Goals:: Verbalizes understanding of THR, RPE & goal METS by session 6, Documents in home exercise log/reports 30 min aerobic 5 day/wk by DC, Demonstrates accurate pulse taking by DC and Other additional outcome/goals: see below Intervention & Plan Exercise Program Goals: Instruct on personal THR & RPE, Instruct on MET level & personal MET goal, Show patient to take own pulse /validate performance until accurate, Instruct on home exercise and Other additional plan/int Physical Activity Home Exercise Physical Activity - Home Exercise: Safe Exercise, Warm-up, Self-monitoring, Cool-Down, Home Exercise > 30 min Daily and Sitting Time <3 hours/daily Outcomes & Goals Outcomes/Goals: Demonstrates correct Warm-up/exercise Cool-Down (S3) if = 2.5 METs, Verbalizes symptoms of exercise intolerance by Session 3 (S3), Demonstrate safe equipment use (S3) & follows exercise prescrition (6) and Other: See below Intervention & Plan Plan/Intervention: Instruct warm-up & cool-down if exercising at > 2 METs, Instruct on symptoms of exercise intolerance & actions to take, Instruct & monitor on saf, Assess intial functional capacity & safety risk and Other See below Nutrition - Initial Assessment Program Goals Nutrition Program Goals Patient has diagnosis of Hyperlipidemia (ICD E78)?: No Visit Date of Eval: 11/24/23 (initial eval ) Cholesterol/Lipids (Other Core Measures) Determine presence & major risk factors that modify LDL goal: Low HDL cholesterol <40 mg/dL*, Family history of premature CHD in Male < 55 years: female <65 yearsFa and Age men > 45 years; women >/= 55 years Outcomes/Goals: Pt IDs own risk factors & lifestyle modifications by Session 10, Verbalizes symptoms of angina & response by session 3., Pt independently manages and Other Additional Outcomes/Goals: Intervention/Plan: Advocate for lipid panel cholesterol medication if applicable, Instruct on personal lipid levels & lipid goals/NCEP guidelines, Instruct on cholesterol and Other additional plan/int Referral to dietitian:: No Diabetes (Other Core Measures) Diabetes Type: Not Applicable Weight Mgt (Other Care) Height: 5 ft 10 in Weight:: 189 lb BMI: 27.1 Diagnosis Overweight/Obesity BMI> 30% ICD-10 E66: No Diagnosis High BMI/Morbid Obesity BMI> 35% ICD-10 Z68: No Outcomes/Goals: Pt sets, maintains & shows weight loss goal & trend during rehab and Other additional outcomes/goals Intervention/Plan: Instruct on ideal BMI & set weight loss goal w/patient, Assist pt to ID & incorporate diet changes for weight loss by S9, Refer to Structured Weight Loss program as appropriate, Encourage goal of using 250- 300dcal per session for weight loss and Other additional plan/interventions Healthy Eating Habits Will attend diet classes:: Yes Outcomes/Goals:: Consume diet rich in vegs,fruits,whole grain/high fiber,fish,lean meat, Limit sat/trans fats,cholesterol & added salts & sugars and Other additional outcome/goals: Intervention/Plan:: Assess current eating habits and Other Additional plan/interventions Education Gave educational materials for:: Signs & symptoms of hypoglycemia, Signs & symptoms of hyperglycemia, Relate diabetes to coronary artery disease and Healthy eating Core - Initial Assessment Visit Date of Eval: 11/24/23 (initial eval ) Medication Compliance Preventative Medication(s):: Beta mikhail and ARB (Angiotensi Rcap) H/O mental health issues: depression, anxiety, or addiction?: Yes Doesn?t believe in the benefits of treatment?: No Believes medications are unnecessary or harmful?: No Has a concern about medication side effects?: No Expresses concern over the cost of medications?: No Outcomes/Goals: Verbalizes medications,desired effect & common side effects @ DC, Pt self-reports following medication regimen, Keeps card in wallet w/medications listed by DC and Other additional outcome/goals: Interventions/plans: Instruct on medication effects & side effects, Review medication list w/patient every two weeks, Instruct importance of taking meds as ordered & assist problem solving and Other additional Tobacco Use Tobacco Use: Non-smoker Hypertension Resting Blood Pressure:: 110/80 [place] [employer] Hypertension Guidelines Outcomes/Goals: Able to verbalize/achieve optimal blood pressure <130/80, Incorporates diet changes & exercise for blood pressure control by DC and Other additional outcomes/goals Interventions/plan: Instruct on optimal blood pressure, hypertension & medications, Instruct on effects of sodium, alcohol, stress, exercise &hype rtension and Other additional plan/interventions Tobacco Cessation Referral Smoking Cessation Referral:: No Individual Education/Counseling:: No Education Schedule Given:: Yes Psychosocial - Initial Assess VIsit Date of Eval: 11/24/23 (initial eval ) History of previous Mental disease:: Yes History of Emotional Disorders: Anxious and Depression Self-reported stressors Other/Comments:: pt is in counseling and on meds and states he is doing fine. Target Goals Target Goals Outcomes/Goals: See list Psychosocial Outcomes/Goals:: ID's personal stressors & 2 strategies to manage stress by discharge and Other Additional outcome/goals: Intervention/Plan: See List Interventions/Plan:: Assess stressors,coping strategies & signs of derpression on admission, Instruct/assist pt to develop coping & personal stress Mgt strategies, Refer to Behavioral Health if appropriate, Refer to Physician if appropriate, Instruct patient to recognize signs & symptoms of depression, Instruct patient to recog and Other additional plan/intervention Patient Health Questionnaire PHQ-9 Screening Initial Assessment: 1. Little interest or pleasure in doing things: Several days 2. Feeling down, depressed, or hopeless: More than half the days 3. Trouble falling or staying asleep, or sleeping too much: More than half the days 4. Feeling tired or having little energy: More than half the days 5. Poor appetite or overeating: Not at all 6. Feeling bad about yourself -- or that you are a failure or have let yourself or your family down: More than half the days 7. Trouble concentrating on things, such as reading the newspaper or watching television: Not at all 8. Moving or speaking so slowly that other people could have noticed. Or the opposite - being so fidgety or restless that you have been moving around a lot more than usual: Not at all 9. Thoughts that you would be better off , or of hurting yourself in some way: Several days How difficult have these problems made it for you to do your work, take care of things at home, or get along with other people?: Somewhat difficult (pt is on meds and in counseling and states he is doing fine) Total Score: 10 LUKE-Q SV Test Statements CAD is a disease of the arteries in the heart: False Examples of risk factors for heart disease: True Angina is chest pain or discomfort: I Don't Know The benefits of resistance training include: True Eating more meat and dairy products: False Anti-platelet medications such as aspirin are important: True The only effective way to manage stress: False An exercise warm-up slowly increases heart rate: I Don't Know Prepared, processed foods usually have high sodium: True Depression is common after a heart attack: True The statin medications lower cholesterol: I Don't Know To control blood pressure, lower the amount of sodium: True If someone gets chest discomfort during walking: False Transfats are partially hydrogenated vegetable oils: True Sleep apnea that is not treated increases the risk: I Don't Know To control cholesterol, one should become a vegetarian: False Someone knows if he/she is exercising at the right level: True Diabetes cannot be prevented with exercise & health eating: True Stress is a large risk for heart attack: True A diet that can help lower blood pressure is rich in: True Total Score Total Correct Responses: 15 Self-Efficacy 6-Item Scale Initial Assessment: We would like to know how confident you are in doing certain activities. Please select your confidence level for: Fatigue Select Number: 4 Physical Discomfort or Pain Select Number: 9 Emotional Distress Select Number: 3 Other Symptoms or Health Problems Select Number: 8 Different Tasks and Activities Select Number: 8 Medication Select Number: 7 Total Score:: 6 Nutrition Survey Nutrition Survey Instructions Scoring Instructions Nutrition Survey Initial: Have you lost >10 lbs over the past 2 months without trying?: Yes Are you following a special diet at home for diabetes, low fat, or low salt?: No Are you interested in meeting with a dietitian for help understanding your diet?: No Do you eat less than 3 meals a day?: No Do you eat fatty meats (orta, sausage, ribs, etc), fried foods, desserts, large amounts of salad dressings, margarine, butter, or cheese most days?: Yes Do you have food allergies? [Enter types in comment field]: No Do you eat in restaurants more than 3 times a week?: No Do you season food with salt, seasoning salt, or garlic salt?: No Do you used canned, boxed, frozen meals, or soups, seasoning packets?: No Total Score:: 2 Exercise - Final/Discharge Physician Prescribed Exercise Modalities: Treadmill, Airdyne, NuStep, SciFit and Lateral [employer] Frequency: 3x/week for 12 weeks [36 sessions] Intensity: 60-80% of age predicted maximum heart rate reserve Current METSs:: 3 Target Heart Rate:: 110-129 Nutrition - 30-Day Assessment Weight Mgt (Other Care) Height: 5 ft 10 in Weight:: 189 lb BMI: 27.1 Nutrition - 60-Day Assessment Weight Mgt (Other Care) Height: 5 ft 10 in Weight:: 189 lb BMI: 27.1 Core - Final Assessment Hypertension Resting Blood Pressure:: 110/80 [place] [employer] Hypertension Guidelines Core - 60-Day Assessment Hypertension Resting Blood Pressure:: 110/80 [place] [employer] Hypertension Guidelines Psychosocial - 30-Day Assess Target Goals Target Goals Psychosocial - 60-Day Assess Target Goals Target Goals Psychosocial - 90-Day Assess Target Goals Target Goals Psychosocial - Final Assessmen Target Goals Target Goals Nutrition - 90-Day Assessment Weight Mgt (Other Care) Height: 5 ft 10 in Weight:: 189 lb BMI: 27.1 Nutrition - Final Assessment Program Goals Patient has diagnosis of Hyperlipidemia (ICD E78)?: No Weight Mgt (Other Care) Height: 5 ft 10 in Weight:: 189 lb BMI: 27.1
[2023-11-24 09:13] VITALS: PULSE 81; O2SAT 98
[2023-11-24 09:16] VITALS: BP 110/80
[2023-11-24 09:17] VITALS: BMI 27.1
[2023-11-24 09:54] VITALS: BP 110/80
[2023-11-24 10:05] VITALS: BP 110/80
[2023-11-24 10:06] VITALS: BMI 27.1
== END | disposition home or self-care (01) ==
LOC: CR 08:51
PROVIDERS: PCP Family Medicine; Referring Provider Internal Medicine Cardiovascular Disease; Visit Provider Internal Medicine Cardiovascular Disease
DX: Z95.2 Presence of prosthetic heart valve (principal); I48.91 Unspecified atrial fibrillation; G89.18 Other acute postprocedural pain; R42 Dizziness and giddiness; R53.83 Other fatigue

== ENCOUNTER 2023-12-16 09:15 | Outpatient (RCR) | payer BC, SELFPAY ==
[2023-11-24 09:17] VITALS: BMI 27.1
== END 2023-12-18 23:59 ==
LOC: CR 09:15
PROVIDERS: PCP Family Medicine; Referring Provider Internal Medicine Cardiovascular Disease; Visit Provider Internal Medicine Cardiovascular Disease
DX: Z95.2 Presence of prosthetic heart valve (principal); Q23.0 Congenital stenosis of aortic valve
CPT/HCPCS: 93798

== ENCOUNTER → 2023-12-23 | Outpatient (CLI) | payer BC, SELFPAY ==
[2023-12-23 10:38] VITALS: BMI 28.0
--- NOTE | 2023-12-23 14:24 | RAD_ITS ---
STUDY: X-RAY CHEST REASON FOR EXAM: Male, 38 years old. COUGH TECHNIQUE: XR Chest 2 Views COMPARISON: 08/04/2023 FINDINGS: There is no demonstrated pleural abnormality. There are multiple median sternotomy wires. Prosthetic heart valve. Normal size heart. Normal mediastinum and jb. Normal visualized pulmonary arteries. Normal visualized aortic arch and descending thoracic aorta. Normal visualized thoracic spine. Normal visualized ribs, clavicles, and shoulders. There are no acute findings of the upper abdomen. RAD/Chest PA and Lateral IMPRESSION: There are no acute findings. Electronically Signed: Jeff Ford MD at 20:27 EDT ,
== END | disposition home or self-care (01) ==
LOC: MTRAD 14:22
PROVIDERS: PCP Family Medicine; Referring Provider Family Medicine; Visit Provider Family Medicine
DX: R05.9 Cough, unspecified (principal)
CPT/HCPCS: 71046

== ENCOUNTER → 2023-12-23 | Outpatient (CLI) | payer BC, SELFPAY ==
[2023-12-23 10:38] VITALS: BMI 28.0
== END | disposition home or self-care (01) ==
LOC: LABSPEC 11:02
PROVIDERS: PCP Family Medicine; Visit Provider Family Medicine
DX: R05.9 Cough, unspecified (principal)
CPT/HCPCS: 87070; 87077; 87205

== ENCOUNTER 2024-01-16 09:15 | Outpatient (RCR) | payer BC, SELFPAY ==
[2023-11-24 09:17] VITALS: BMI 27.1
--- NOTE | 2023-12-23 10:25 | CR.ITP_ITS ---
Exercise - Initial Assessment Visit Session #:: 12 Nutrition - Initial Assessment Weight Mgt (Other Care) Height: 5 ft 10 in Weight:: 195 lb 8 oz BMI: 28.0 Psychosocial - Initial Assess Target Goals Target Goals Patient Health Questionnaire PHQ-9 Screening 30-Day Re-eval Assessment: 1. Little interest or pleasure in doing things: Several days 2. Feeling down, depressed, or hopeless: More than half the days 3. Trouble falling or staying asleep, or sleeping too much: More than half the days 4. Feeling tired or having little energy: More than half the days 5. Poor appetite or overeating: Not at all 6. Feeling bad about yourself -- or that you are a failure or have let yourself or your family down: More than half the days 7. Trouble concentrating on things, such as reading the newspaper or watching television: Not at all 8. Moving or speaking so slowly that other people could have noticed. Or the opposite - being so fidgety or restless that you have been moving around a lot more than usual: Not at all 9. Thoughts that you would be better off , or of hurting yourself in some way: Several days How difficult have these problems made it for you to do your work, take care of things at home, or get along with other people?: Somewhat difficult (pt is on meds and in counseling and states he is doing fine) Total Score: 10 Self-Efficacy 6-Item Scale 30-Day Re-eval Assessment: We would like to know how confident you are in doing certain activities. Please select your confidence level for: Fatigue Select Number: 4 Physical Discomfort or Pain Select Number: 9 Emotional Distress Select Number: 3 Other Symptoms or Health Problems Select Number: 8 Different Tasks and Activities Select Number: 8 Medication Select Number: 7 Total Score:: 6 Nutrition Survey Nutrition Survey Instructions Scoring Instructions Exercise - 30-day Assessment Visit Date of Eval: 12/23/23 Session #:: 12 Physician Prescribed Exercise Modalities: Treadmill, Airdyne and SciFit Frequency: 3x/week for 12 weeks [36 sessions] Intensity: 60-80% of age predicted maximum heart rate reserve Duration: 30 - 45 minutes Current METSs:: 5 Target Heart Rate:: 138-156 Current RPE:: 13 Maximum Excercise HR:: 112 Resting Blood Pressure: 102/78 Maximum Exercise Blood Pressure: 122/82 EKG Type: 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,pvc Outcomes & Goals Goals:: Verbalizes understanding of THR, RPE & goal METS by session 6, Documents in home exercise log/reports 30 min aerobic 5 day/wk by DC, Demonstrates accurate pulse taking by DC and Other additional outcome/goals: see below Intervention & Plan Exercise Program Goals: Instruct on personal THR & RPE, Instruct on MET level & personal MET goal, Show patient to take own pulse /validate performance until accurate, Instruct on home exercise and Other additional plan/int 30-day Reassessments 30 day Reassessments:: Progressing Reassessment Notes & Comments:: RPE explained Physical Activity Home Exercise Physical Activity - Home Exercise: Safe Exercise, Warm-up, Self-monitoring, Cool-Down, Home Exercise > 30 min Daily and Sitting Time <3 hours/daily Outcomes & Goals Outcomes/Goals: Demonstrates correct Warm-up/exercise Cool-Down (S3) if = 2.5 METs, Verbalizes symptoms of exercise intolerance by Session 3 (S3), Demonstrate safe equipment use (S3) & follows exercise prescrition (6) and Other: See below Intervention & Plan Plan/Intervention: Instruct warm-up & cool-down if exercising at > 2 METs, Instruct on symptoms of exercise intolerance & actions to take, Instruct & monitor on saf, Assess intial functional capacity & safety risk and Other See below 30-day Reassessments 30 day Reassessments:: Progressing Reassessment Notes & Comments:: warm up encouraged Nutrition - 30-Day Assessment Program Goals Nutrition Program Goals Patient has diagnosis of Hyperlipidemia (ICD E78)?: Yes Visit Date of Eval: 12/23/23 Session #:: 12 Cholesterol/Lipids (Other Core Measures) Determine presence & major risk factors that modify LDL goal: Hypertension or hypertensive medication, Low HDL cholesterol <40 mg/dL*, Family history of premature CHD in Male < 55 years: female <65 yearsFa and Age men > 45 years; women >/= 55 years Outcomes/Goals: Pt IDs own risk factors & lifestyle modifications by Session 10, Verbalizes symptoms of angina & response by session 3., Pt independently manages and Other Additional Outcomes/Goals: Intervention/Plan: Advocate for lipid panel cholesterol medication if applicable, Instruct on personal lipid levels & lipid goals/NCEP guidelines, Instruct on cholesterol and Other additional plan/int 30-day Reassessments:: Progressing Reassessment Notes & Comments:: pt to attend nutrition class Diabetes (Other Core Measures) Diabetes Type: Not Applicable Weight Mgt (Other Care) Height: 5 ft 10 in Weight:: 195 lb 8 oz BMI: 28.0 Diagnosis Overweight/Obesity BMI> 30% ICD-10 E66: No Diagnosis High BMI/Morbid Obesity BMI> 35% ICD-10 Z68: No Outcomes/Goals: Pt sets, maintains & shows weight loss goal & trend during rehab and Other additional outcomes/goals Intervention/Plan: Instruct on ideal BMI & set weight loss goal w/patient, Assist pt to ID & incorporate diet changes for weight loss by S9, Refer to Structured Weight Loss program as appropriate, Encourage goal of using 250- 300dcal per session for weight loss and Other additional plan/interventions 30 day Reassessments:: Progressing Reassessment Notes & Comments:: pt to attend nutrition class Healthy Eating Habits Will attend diet classes:: Yes Outcomes/Goals:: Consume diet rich in vegs,fruits,whole grain/high fiber,fish,lean meat, Limit sat/trans fats,cholesterol & added salts & sugars and Other additional outcome/goals: Intervention/Plan:: Assess current eating habits and Other Additional plan/interventions 30-day Reassessments:: Progressing Reassessment Notes & Comments:: pt to attend nutrition class Education Gave educational materials for:: Signs & symptoms of hypoglycemia, Signs & symptoms of hyperglycemia, Relate diabetes to coronary artery disease and Healthy eating Nutrition - 60-Day Assessment Weight Mgt (Other Care) Height: 5 ft 10 in Weight:: 195 lb 8 oz BMI: 28.0 Core - 30-Day Assessment Visit Date of Eval: 12/23/23 Session #:: 12 Medication Compliance Preventative Medication(s):: Beta mikhail and ARB (Angiotensi Rcap) H/O mental health issues: depression, anxiety, or addiction?: Yes Doesn?t believe in the benefits of treatment?: No Believes medications are unnecessary or harmful?: No Has a concern about medication side effects?: No Expresses concern over the cost of medications?: No Outcomes/Goals: Verbalizes medications,desired effect & common side effects @ DC, Pt self-reports following medication regimen, Keeps card in wallet w/medic ations listed by DC and Other additional outcome/goals: Interventions/plans: Instruct on medication effects & side effects, Review medication list w/patient every two weeks, Instruct importance of taking meds as ordered & assist problem solving and Other additional 30-day Reassessments:: Progressing Reassessment Notes & Comments:: pt encouraged to take his meds Tobacco Use Tobacco Use: Non-smoker Hypertension Hypertension Diagnosis:: Hypertension ICD-10 I10 Resting Blood Pressure:: 102/78 [place] [employer] Hypertension Guidelines Peak Exercise Blood Pressure:: 122/82 Outcomes/Goals: Able to verbalize/achieve optimal blood pressure <130/80, Incorporates diet changes & exercise for blood pressure control by DC and Other additional outcomes/goals Interventions/plan: Instruct on optimal blood pressure, hypertension & medications, Instruct on effects of sodium, alcohol, stress, exercise &hy pertension and Other additional plan/interventions 30 day Reassessments:: Met Tobacco Cessation Referral Smoking Cessation Referral:: No Individual Education/Counseling:: No Education Schedule Given:: Yes Psychosocial - 30-Day Assess VIsit Date of Eval: 12/23/23 Session #:: 12 History of previous Mental disease:: Yes History of Emotional Disorders: Anxious and Depression Target Goals Target Goals Outcomes/Goals: See list Psychosocial Outcomes/Goals:: ID's personal stressors & 2 strategies to manage stress by discharge and Other Additional outcome/goals: Intervention/Plan: See List Interventions/Plan:: Assess stressors,coping strategies & signs of derpression on admission, Instruct/assist pt to develop coping & personal stress Mgt strategies, Refer to Behavioral Health if appropriate, Refer to Physician if appropriate, Instruct patient to recognize signs & symptoms of depression, Instruct patient to recog and Other additional plan/intervention 30-day Reassessments: 30 day Reassessments:: Progressing Reassessment Notes & Comments:: pt is on meds and doing ok at this time Psychosocial - 60-Day Assess Target Goals Target Goals Outcomes/Goals: See list Psychosocial Outcomes/Goals:: ID's personal stressors & 2 strategies to manage stress by discharge and Other Additional outcome/goals: Psychosocial - 90-Day Assess Target Goals Target Goals Psychosocial - Final Assessmen Target Goals Target Goals Nutrition - 90-Day Assessment Weight Mgt (Other Care) Height: 5 ft 10 in Weight:: 195 lb 8 oz BMI: 28.0 Nutrition - Final Assessment Weight Mgt (Other Care) Height: 5 ft 10 in Weight:: 195 lb 8 oz BMI: 28.0
[2023-12-23 10:38] VITALS: BP 102/78; BMI 28.0
== END 2024-01-17 23:59 ==
LOC: CR 09:15
PROVIDERS: PCP Family Medicine; Referring Provider Internal Medicine Cardiovascular Disease; Visit Provider Internal Medicine Cardiovascular Disease
DX: Z95.2 Presence of prosthetic heart valve (principal); Q23.0 Congenital stenosis of aortic valve
CPT/HCPCS: 93798

== ENCOUNTER 2024-02-17 09:30 | Outpatient (RCR) | payer BC, SELFPAY ==
[2023-12-23 10:38] VITALS: BMI 28.0
[2024-01-18 00:21] VITALS: BP 102/78
--- NOTE | 2024-01-23 07:18 | PCM.CR.ITP ---
Nutrition - Initial Assessment Weight Mgt (Other Care) Height: 5 ft 10 in Weight:: 199 lb BMI: 28.5 Core - Initial Assessment Hypertension Resting Blood Pressure:: 142/88 [place] [employer] Hypertension Guidelines Psychosocial - Initial Assess Target Goals Target Goals Referral to Behavioral Health PS - Interventions: Yes: Attend Stress Management Classes and No: Referral to Behavioral Health if PHQ-9 score >9:, No: Referral to [facility] and No: Referral to Physician if PHQ-9 if score is 5-9: Patient Health Questionnaire PHQ-9 Screening 90-Day Re-eval Assessment: 1. Little interest or pleasure in doing things: Not at all 2. Feeling down, depressed, or hopeless: Not at all 3. Trouble falling or staying asleep, or sleeping too much: Several days 4. Feeling tired or having little energy: Several days 5. Poor appetite or overeating: Not at all 6. Feeling bad about yourself -- or that you are a failure or have let yourself or your family down: Several days 7. Trouble concentrating on things, such as reading the newspaper or watching television: Not at all 8. Moving or speaking so slowly that other people could have noticed. Or the opposite - being so fidgety or restless that you have been moving around a lot more than usual: Not at all 9. Thoughts that you would be better off , or of hurting yourself in some way: Not at all How difficult have these problems made it for you to do your work, take care of things at home, or get along with other people?: Not difficult at all Total Score: 3 Self-Efficacy 6-Item Scale 90-Day Re-eval Assessment: We would like to know how confident you are in doing certain activities. Please select your confidence level for: Fatigue Select Number: 7 Physical Discomfort or Pain Select Number: 10 Emotional Distress Select Number: 6 Other Symptoms or Health Problems Select Number: 9 Different Tasks and Activities Select Number: 9 Medication Select Number: 8 Total Score:: 8 Nutrition Survey Nutrition Survey Instructions Scoring Instructions Exercise - 90-day Assessment Visit Date of Eval: 01/23/24 Session #:: 23 Physician Prescribed Exercise Modalities: Treadmill, Airdyne and NuStep Frequency: 3x/week for 12 weeks [36 sessions] Intensity: 60-80% of age predicted maximum heart rate reserve Duration: 30 - 45 minutes Current METSs:: 7.0 Target Heart Rate:: 138-156 Current RPE:: 13-14 Maximum Excercise HR:: 129 Resting Blood Pressure: 122/86 Maximum Exercise Blood Pressure: 142/88 EKG Type: Sinus Rhythm to Sinus Tachycardia with BBB, rare ventricular couplets, PVCs Current Physical Activity or Exercising minutes: 35:32 Outcomes & Goals Goals:: Verbalizes understanding of THR, RPE & goal METS by session 6, Documents in home exercise log/reports 30 min aerobic 5 day/wk by DC and Demonstrates accurate pulse taking by DC Intervention & Plan Exercise Program Goals: Instruct on personal THR & RPE, Instruct on MET level & personal MET goal, Show patient to take own pulse /validate performance until accurate and Instruct on home exercise 30-day Reassessments 30 day Reassessments:: Met Physical Activity Home Exercise Physical Activity - Home Exercise: Safe Exercise, Warm-up, Self-monitoring, Cool-Down, Home Exercise > 30 min Daily and Sitting Time <3 hours/daily Outcomes & Goals Outcomes/Goals: Demonstrates correct Warm-up/exercise Cool-Down (S3) if = 2.5 METs, Verbalizes symptoms of exercise intolerance by Session 3 (S3) and Demonstrate safe equipment use (S3) & follows exercise prescrition (6) Intervention & Plan Plan/Intervention: Instruct warm-up & cool-down if exercising at > 2 METs, Instruct on symptoms of exercise intolerance & actions to take, Instruct & monitor on saf and Assess intial functional capacity & safety risk 30-day Reassessments 30 day Reassessments:: Met Nutrition - 30-Day Assessment Weight Mgt (Other Care) Height: 5 ft 10 in Weight:: 199 lb BMI: 28.5 Nutrition - 60-Day Assessment Weight Mgt (Other Care) Height: 5 ft 10 in Weight:: 199 lb BMI: 28.5 Core - Final Assessment Hypertension Resting Blood Pressure:: 142/88 [place] [employer] Hypertension Guidelines Core - 60-Day Assessment Visit Date of Eval: 01/23/24 Session #:: 23 Medication Compliance Preventative Medication(s):: Aspirin and Beta mikhail H/O mental health issues: depression, anxiety, or addiction?: No Doesn?t believe in the benefits of treatment?: No Believes medications are unnecessary or harmful?: No Has a concern about medication side effects?: No Expresses concern over the cost of medications?: No Outcomes/Goals: Verbalizes medications,desired effect & common side effects @ DC, Pt self-reports following medication regimen and Keeps card in wallet w/medications listed by DC Interventions/plans: Instruct on medication effects & side effects, Review medication list w/patient every two weeks and Instruct importance of taking meds as ordered & assist problem solving 30-day Reassessments:: Met Tobacco Use Tobacco Use: Non-smoker Hypertension Hypertension Diagnosis:: Hypertension ICD-10 I10 Resting Blood Pressure:: 122/86 (controlled iwht medications) Resting Blood Pressure:: 142/88 [place] [employer] Hypertension Guidelines Outcomes/Goals: Able to verbalize/achieve optimal blood pressure <130/80 and Incorporates diet changes & exercise for blood pressure control by DC Interventions/plan: Instruct on optimal blood pressure, hypertension & medications and Instruct on effects of sodium, alcohol, stress, exercise &hypertension 30 day Reassessments:: Progressing Tobacco Cessation Referral Smoking Cessation Referral:: No Individual Education/Counseling:: No Education Schedule Given:: Yes Psychosocial - 30-Day Assess Target Goals Target Goals Referral to Behavioral Health PS - Interventions: Yes: Attend Stress Management Classes and No: Referral to Behavioral Health if PHQ-9 score >9:, No: Referral to [facility] and No: Referral to Physician if PHQ-9 if score is 5-9: Psychosocial - 60-Day Assess Target Goals Target Goals Referral to Behavioral Health PS - Interventions: Yes: Attend Stress Management Classes and No: Referral to Behavioral Health if PHQ-9 score >9:, No: Referral to [facility] and No: Referral to Physician if PHQ-9 if score is 5-9: Psychosocial - 90-Day Assess VIsit Date of Eval: 01/23/24 Session #:: 23 Not Applicable: Yes History of previous Mental disease:: No Target Goals Target Goals Psychosocial Test Tool Used:: PHQ-9 Questionnaire phq-9 Severity Referral to Behavioral Health PS - Interventions: Yes: Attend Stress Management Classes and No: Referral to Behavioral Health if PHQ-9 score >9:, No: Referral to [facility] and No: Referral to Physician if PHQ-9 if score is 5-9: Outcomes/Goals: See list Psychosocial Outcomes/Goals:: ID's personal stressors & 2 strategies to manage stress by discharge Intervention/Plan: See List Interventions/Plan:: Assess stressors,coping strategies & signs of derpression on admission 30-day Reassessments: 30 day Reassessments:: Met Psychosocial - Final Assessmen Target Goals Target Goals Referral to Behavioral Health PS - Interventions: Yes: Attend Stress Management Classes and No: Referral to Behavioral Health if PHQ-9 score >9:, No: Referral to [facility] and No: Referral to Physician if PHQ-9 if score is 5-9: Nutrition - 90-Day Assessment Program Goals Nutrition Program Goals Patient has diagnosis of Hyperlipidemia (ICD E78)?: Yes Visit Date of Eval: 01/23/24 Session #:: 23 Cholesterol/Lipids (Other Core Measures) Determine presence & major risk factors that modify LDL goal: Hypertension or hypertensive medication and Age men > 45 years; women >/= 55 years Outcomes/Goals: Pt IDs own risk factors & lifestyle modifications by Session 10, Verbalizes symptoms of angina & response by session 3. and Pt independently manages Intervention/Plan: Instruct on personal lipid levels & lipid goals/NCEP guidelines and Instruct on cholesterol Referral to dietitian:: Yes 30-day Reassessments:: Progressing Diabetes (Other Core Measures) Diabetes Type: Not Applicable Weight Mgt (Other Care) Height: 5 ft 10 in Weight:: 199 lb BMI: 28.5 Diagnosis Overweight/Obesity BMI> 30% ICD-10 E66: No Diagnosis High BMI/Morbid Obesity BMI> 35% ICD-10 Z68: No Outcomes/Goals: Pt sets, maintains & shows weight loss goal & trend during rehab Intervention/Plan: Instruct on ideal BMI & set weight loss goal w/patient 30 day Reassessments:: Met Healthy Eating Habits Will attend diet classes:: Yes Outcomes/Goals:: Consume diet rich in vegs,fruits,whole grain/high fiber,fish,lean meat and Limit sat/trans fats,cholesterol & added salts & sugars Intervention/Plan:: Assess current eating habits 30-day Reassessments:: Progressing Education Gave educational materials for:: Healthy eating Nutrition - Final Assessment Weight Mgt (Other Care) Height: 5 ft 10 in Weight:: 199 lb BMI: 28.5
[2024-01-23 07:26] VITALS: BP 122/86; BP 142/88; BMI 28.5
== END 2024-02-17 23:59 ==
LOC: CR 09:30
PROVIDERS: PCP Family Medicine; Referring Provider Internal Medicine Cardiovascular Disease; Visit Provider Internal Medicine Cardiovascular Disease
DX: Z95.2 Presence of prosthetic heart valve (principal); I35.0 Nonrheumatic aortic (valve) stenosis
CPT/HCPCS: 93798

== ENCOUNTER 2024-02-27 09:30 | Outpatient (RCR) | payer BC, SELFPAY ==
[2024-02-18 00:41] VITALS: BP 102/78; BP 122/86; BP 142/88; BMI 28.0
== END 2024-03-18 23:59 ==
LOC: CR 09:30
PROVIDERS: PCP Family Medicine; Referring Provider Internal Medicine Cardiovascular Disease; Visit Provider Internal Medicine Cardiovascular Disease
DX: Z95.2 Presence of prosthetic heart valve (principal); Q23.0 Congenital stenosis of aortic valve
CPT/HCPCS: 93798

== ENCOUNTER 2024-03-12 06:43 | Day surgery (SDC) | payer BC, SELFPAY ==
[2024-02-23 15:29] VITALS: BMI 28.5
[2024-03-12] VITALS (7 sets, daily range): BP systolic 98–132; BP diastolic 82–95; PULSE 63–77; RESP 14–18; TEMP 36.2–36.7; O2SAT 96–100; BMI 28.4
[2024-03-12 07:00] LABS: INR Fingerstick 1.4; Prothrombin Time Fingerstick 15.7 SEC (11.7-14.9)
--- NOTE | 2024-03-12 07:19 | PRE.ANES_ITS ---
ASA Classification* ASA Classification ASA Classification: 3 Assessment & Plan Anesthesia* Anesthesia Assessment Anesthesia Assessment: Discussed sedation and/or anesthesia options, risks, benefits, and alternatives with patient/parents/legal guardian/POA. Questions invited. The patient/parents/legal guardian/POA seems to understand and agrees to proceed with anesthesia plan. Reviewed the physical assessment, medical history, allergy history and patient home medications list prior to surgery/procedure/anesthetic and documented any changes. Performed airway and anesthesia risk assessments. 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 When Was Last Pacemaker Check QUESTION #4 FULL TEXT: You/Your Family Experience fever (hyperthermia) with Anesthesia Last Oral Intake Last Oral intake: Last Oral Intake NPO since Meds taken in AM with sips of water? Meds patient instructed to take am of surgery PONV PONV - marine insurance claim examiner: PONV - marine insurance claim examiner Female No 03/06/24 14:06 HX of Motion Sickness Yes 03/06/24 14:06 HX of N/V After Surgery Yes 03/06/24 14:06 Non-Smoker Yes 03/06/24 14:06 Duration of Surgery greater No 03/06/24 14:06 than 60 minutes Number of Risk Factors 3 03/06/24 14:06 PONV Score Moderate Risk 03/06/24 14:06 Height & Weight Height & Weight: Anesthesia: Height & Weight Height 5 ft 10 in 03/05/24 09:30 Respiratory Assessment Respiratory Assessment - marine insurance claim examiner: Respiratory Tract Infection Hx - marine insurance claim examiner Hx Respiratory Tract Infection No 03/06/24 14:06 STOP Sleep Apnea STOP Sleep Apnea - marine insurance claim examiner: STOP Sleep Apnea - marine insurance claim examiner Hx Hypertension No 03/06/24 14:06 Hx Sleep Apnea No 03/06/24 14:06 CPAP BIPAP Do you snore loudly (louder No 03/06/24 14:06 than talking or can be heard Do you often feel tired/ No 03/06/24 14:06 fatigued/ sleepy during daytime? Has anyone observed you stop No 03/06/24 14:06 breathing during sleep? STOP Results Negative 03/06/24 14:06 QUESTION #5 FULL TEXT : Do you snore loudly (louder than talking or can be heard through closed doors)? 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 Specify any problems Hx of Preganancy in last 3 N/A 03/06/24 14:06 Months Nurse Filling Out Transfusion VCHRISTIN 03/06/24 14:06 & Questions: Date: 03/06/24 03/06/24 14:06 Time: 14:08 03/06/24 14:06 Patient unable to answer at this time (ie. confused, unrespo /Reproduction History /Reproductive History - marine insurance claim examiner: /Reproductive Hx- marine insurance claim examiner Hx Now No 03/06/24 14:06 Gestational Age (in weeks): EDC: Hx Hx Para Hx Section SAB No 03/06/24 14:06 Active Medications Active Medications: Current Medications Generic Name Dose Route Start Last Admin Trade Name Freq PRN Reason Stop Dose Admin Lactated Ringer's 1,000 mls @ 15 mls/hr 03/12/24 07:30 IV .Q48H KASSIDY Anesthesia Focused Assessment* Airway Assessment Mouth opens: >3 cm Mallampati Score: II Focused Labs Anesthesia Preop lab: CBC WBC 9.4 K/mm3 (4.4-11.0) 02/27/23 20:10 RBC 5.08 M/mm3 (4.6-6.2) 02/27/23 20:10 Hgb 15.9 g/dL (13.0-16.5) 02/27/23 20:10 Hct 47.2 % (40-54) 02/27/23 20:10 Plt Count 191 K/mm3 (150-450) 02/27/23 20:10 CHEMISTRY Potassium 3.7 mmol/L (3.5-5.1) 02/27/23 20:10 Sodium 141 mmol/L (136-145) 02/27/23 20:10 BUN 27 mg/dL (7-18) H 02/27/23 20:10 Creatinine 1.52 mg/dL (0.70-1.30) H 02/27/23 20:10 Glucose 109 mg/dL (74-106) H 02/27/23 20:10 TSH 3.54 uIU/mL (0.358-3.74) 04/02/18 22:20 COAG PT 13.5 SECONDS (11.7-14.9) 02/27/23 20:10 Review of Systems (Anesthesia) ROS Narrative System reviewed and no additional complaints, except as documented. [facility] Medical History Excessive bleeding MIGUELITO (generalized anxiety disorder) Major depressive disorder Aortic stenosis Congenital heart defect Atrial fibrillation Wears glasses Depression Anxiety Alcohol use Back pain Heartburn Non-smoker Leg cramps History of echocardiogram History of stress test Cardiology follow-up encounter Nausea Blood in the stool Hemorrhoids Vasovagal attack Heart disease Abnormal cardiac enzyme level Aortic root dilation Atrial flutter with rapid ventricular response Palpitations Home Medications ?Medication ?Instructions ?Recorded ?Last Taken ?Type aspirin 81 mg tablet,delayed 81 mg PO DAILY 09/04/18 Unknown History release (Adult Aspirin Regimen) escitalopram oxalate 10 mg tablet 10 mg PO DAILY 90 days #90 tabs 12/12/23 Unknown Rx metoprolol succinate 25 mg 25 mg PO BID 12/12/23 Unknown History tablet,extended release 24 hr warfarin 5 mg tablet 5 mg PO DAILY 12/12/23 Unknown History bupropion HCl 300 mg 24 hr tablet, 300 mg PO QAM #90 tabs 02/01/24 Unknown Rx extended release lorazepam 0.5 mg tablet 0.5 mg PO BID PRN Anxiety #60 tabs 02/01/24 Unknown Rx Allergy/AdvReac Type Severity Reaction Status Date / Time No Known Allergies Allergy Verified 03/06/24 13:50 Family History Father Anxiety Other Colon cancer Surgical History Hx of surgical procedure History of cardiac radiofrequency ablation Hx of aortic valve replacement Hx of colonoscopy History of cardiac catheterization S/P RF ablation operation for arrhythmia Bicuspid aortic valve Coarctation of aorta Social History Smoking Status: Never smoker second hand exposure: No alcohol intake: current alcohol intake frequency: a few times a month substance use type: does not use caffeine: Yes frequency: does not exercise seatbelt use: always
--- NOTE | 2024-03-12 07:33 | PCM.HP.BLA ---
History and Physical Date of Admission: 03/12/24 DAGOBERTO IBARRA, is a 38 M who presents to the office today for follow up. *BGI established 02.26.22 with rectal bleeding, hemorrhoids and lower abdominal pain/discomfort. FH grandfather colon cancer. Biochemical workup CBC, CRP, ESR without pertinent abnormality. Colonoscopy 05.05.22 noting internal/external thrombosed hemorrhoids; congested mucosa RS, sigmoid, splenic flexure and transverse colon; friability of TI. No pathologic abnormalities. Hydrocortisone suppositories with possible hemorrhoid banding in clinic. OV 05.19.22 continue hydrocortisone suppositories. OV 07.30.22 continued lower abdominal pain/discomfort previously occurring 1-2 days each week or so; since starting suppository he has not had any abdominal discomfort. Bleeding occurs at least once a week and he reports as heavy with BM which occur 1-2 times a day with soft stools and rare straining. ? Hemorrhoid banding performed during OV with 3 hemorrhoids banded, tolerated well in regard to pain. OV 11.25.22 feels he is doing well overall. Denies difficulty following hemorrhoid banding at last visit. Bleeding has vastly improved since LV; occurs now approximately every two weeks with much less severity. No identifiable trigger of bleeding. OV 02.23.24 Pt reports that he is having one formed bm per day; endorses blood in the stool. Pt reports heart surgery in September and is now on blood thinners. ROS Const Constitutional: No fatigue, fever(s) or weight change ENT ENT: No difficulty swallowing Gastro GI: Positive for constipation; No abdominal pain, belching, bloating, change in bowel habits, change in stool character, coffee ground emesis, cramping, diarrhea, heartburn, difficulty swallowing, feeling full early, excessive flatus, incontinent of stools, Vomiting blood/hematemesis, Blood in stool, loose stools, Black,tarry stools, nausea/dyspepsia, pain with swallowing, vomiting or other Musc Musculoskeletal: Positive for back pain; No joint pain Skin Skin: No yellowing of the eye or itchy eyes Psych Psychiatric: Positive for anxiety and Positive for depression Endo Endocrine: No fatigue or weight change Aller/Imm Allergy/Immunologic: No itchy eyes Jaime/Lymp Hematologic/Lymphatic: Positive for easy bleeding and easy bruising Exam Const General: cooperative, healthy appearing and no acute distress Nutritional Appearance: average body habitus Orientation: alert, awake and oriented x3 Assessment and Plan Assessment and Plan (1) Internal hemorrhoid, bleeding: Status: Chronic Plan: He had a very large internal hemorrhoids that was seen on examination. He had 3 placed on the internal hemorrhoids. The anal fissure was healed from the rectal suppositories. He may need repeat banding in the future. Will have to do it in the operating room via flex sig because now he is on Coumadin because he had a aortic heart valve replacement and cannot stop anticoagulation. (2) Bright red blood per rectum: Status: Chronic Plan: Bright red blood per rectum was secondary to external hemorrhoids on exam which appear very excoriated. We will hold off on his steroid creams and suppositories at this time. He is actually doing very well and not having many symptoms at all. I have examined the patient and the H&P has been reviewed. There are no clinical changes since date of exam.
[2024-03-12] MEDS: Lactated Ringers 1,000 ML 15 ML IV (07:38)
[2024-03-12] MEDS: 0.9% Saline Lock 10 ML Syringe IV (08:02)
[2024-03-12] MEDS: Botulinum Toxin A 100 Units Vial IJ (08:17)
[2024-03-12] MEDS: 0.9% Normal Saline (Pres. free 10 ML Vial (08:17)
--- NOTE | 2024-03-12 08:34 | PCM.POST.ANE ---
Anesthesia: Postop Eval I Current Vital Signs Temperature: 98 F Pulse Rate: 63 Blood Pressure: 132/95 Respiratory Rate: 14 Pulse Ox: 97 Oxygen Delivery Method: Room Air Assessment Airway patent: Yes Spontaneous unlabored respirations: Yes Mental status: Asleep nausea: No Vomiting: No Anesthesia Complication: No Fluid Hydration Crystalloid volume administer (ml): 500 Total IV fluid infused: 500 Progress Note Anesthesia document: Postop Eval 1 completed: Yes
--- NOTE | 2024-03-12 08:35 | OP.FLEXSIG_ITS ---
Patient Name: Noel Arteaga Procedure Date: 03/12/2024 8:07 AM Date of : 1985 Age: 38 Procedure: Flexible Sigmoidoscopy Indications: Hematochezia Providers: Shabbir Estrada DO Medicines: None Patient Profile: This is a 38 year old male. Refer to note in patient chart for documentation of history and physical. Last Colonoscopy: date unknown. Unable to locate last colonoscopy report. Complications: No immediate complications. Procedure: Pre-Anesthesia Assessment: - Prior to the procedure, a History and Physical was performed, and patient medications and allergies were reviewed. The patient is competent. The risks and benefits of the procedure and the sedation options and risks were discussed with the patient. All questions were answered and informed consent was obtained. Patient identification and proposed procedure were verified by the physician in the pre-procedure area. Mental Status Examination: alert and oriented. Airway Examination: normal oropharyngeal airway and neck mobility. Respiratory Examination: clear to auscultation. CV Examination: normal. Prophylactic Antibiotics: The patient does not require prophylactic antibiotics. Prior Anticoagulants: The patient has taken no anticoagulant or antiplatelet agents. ASA Grade Assessment: II - A patient with mild systemic disease. After reviewing the risks and benefits, the patient was deemed in satisfactory condition to undergo the procedure. The anesthesia plan was to use monitored anesthesia care (MAC). Immediately prior to administration of medications, the patient was re-assessed for adequacy to receive sedatives. The heart rate, respiratory rate, oxygen saturations, blood pressure, adequacy of pulmonary ventilation, and response to care were monitored throughout the procedure. The physical status of the patient was re-assessed after the procedure. After obtaining informed consent, the endoscope was passed under direct vision. Throughout the procedure, the patient's blood pressure, pulse, and oxygen saturations were monitored continuously. The Endoscope was introduced through the anus and advanced to the descending colon. The flexible sigmoidoscopy was accomplished without difficulty. The patient tolerated the procedure well. The quality of the bowel preparation was 70 percent obscured. Scope In: 8:14:13 AM Scope Out: 8:29:06 AM Total Procedure Duration Time 0 hours 14 minutes 53 seconds Findings: Bleeding external and internal hemorrhoids were found during retroflexion, during perianal exam and during digital exam. The hemorrhoids were Grade III (internal hemorrhoids that prolapse but require manual reduction). A hemorrhoid was isolated with endoscopy. The MARK ligator was positioned over the hemorrhoid at the left lateral position. Suction was applied and one rubber band was placed over the hemorrhoid. This was checked to make certain that the muscularis was free of the band. There were no complications. A 5 mm anal fissure was found in the anal canal. Area was successfully injected with 100 units botulinum toxin. Impression: - No specimens collected. Recommendation: - Use original regular Metamucil one teaspoon PO BID for 2 weeks. Procedure Code(s): --- Professional --- 03531, Sigmoidoscopy, flexible; with band ligation(s) (eg, hemorrhoids) 57735, Sigmoidoscopy, flexible; with directed submucosal injection(s), any substance CPT copyright 2021 [employer]. All rights reserved. The codes documented in this report are preliminary and upon master pilot review may be revised to meet current compliance requirements. Shabbir Estrada DO 03/12/2024 8:34:49 AM This report has been signed electronically. Number of Addenda: 0 Note Initiated On: 03/12/2024 8:07 AM
--- NOTE | 2024-03-12 08:35 | OP.CCLET_ITS ---
03/12/2024 Dewey Gonsalves [address] [place] [address] Re : Flexible Sigmoidoscopy procedure for Noel Arteaga Dear Dr. Gonsalves This procedure was performed on Tuesday, March 12, 2024. My impressions and recommendations are as follows: Impressions : - No specimens collected. Recommendations : - Use original regular Metamucil one teaspoon PO BID for 2 weeks. My findings are described in the full procedure note, which is enclosed. If I can be of further assistance, please feel free to contact me at . Sincerely, Shabbir Friend, 03/12/2024 8:34:49 AM This report has been signed electronically.
--- NOTE | 2024-03-12 13:06 | PCM.POSTANE2 ---
Anesthesia Postop Eval I Sum Postop Eval Completion status Anesthesia document: Postop Eval 1 completed: Yes Anesthesia Postop Eval I Summary Anesthesia Postop Eval I Summary: Anesthesia Postop Eval I: Assessment Summary Airway patent Yes 03/12/24 08:35 [email or web address] Spontaneous unlabored Yes 03/12/24 08:35 [email or web address] respirations Mental status Asleep 03/12/24 08:35 [email or web address] nausea No 03/12/24 08:35 [email or web address] Vomiting No 03/12/24 08:35 [email or web address] Anesthesia Postop Eval I: Fluid Summary Crystalloid volume administer 500 03/12/24 08:35 [email or web address] (ml) Colloids volume administered ( ml) Blood Product volume administered (ml) Total IV fluid infused 500 03/12/24 08:35 [email or web address] Anesthesia Postop Eval I: Summary Notes Anesthesia Complication No 03/12/24 08:35 [email or web address] Anesthesia Complication Comment: Post-operative progress note Anesthesia: Postop Eval II Evaluation Mental status: Awake and Calm Pain Level: 0 nausea: No Vomiting: No Complications Anesthesia Complication: No
== END 2024-03-12 09:26 | disposition home or self-care (01) ==
LOC: EN 06:47 → AC 07:01
PROVIDERS: PCP Family Medicine; Referring Provider Family Medicine; Visit Provider Internal Medicine Gastroenterology
PROC: 0DJD8ZZ Inspection of Lower Intestinal Tract, Via Natural or Artificial Opening Endoscopic (ICD-10-PCS; CPT 45330; principal; 2024-03-12 07:55)
DX: K64.2 Third degree hemorrhoids (principal); Z80.0 Family history of malignant neoplasm of digestive organs; K62.5 Hemorrhage of anus and rectum; Z95.2 Presence of prosthetic heart valve; Z79.01 Long term (current) use of anticoagulants; K60.2 Anal fissure, unspecified; K64.4 Residual hemorrhoidal skin tags
CPT/HCPCS: 46221; 45335; 36416; 85610; J7120; A4216; J0585; J2405; J3490

== ENCOUNTER 2024-10-29 08:29 | Day surgery (SDC) | payer OTHER, SELFPAY ==
[2024-05-07 09:03] VITALS: BMI 28.5
--- NOTE | 2024-10-10 16:31 | PAT.ANESEVAL ---
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 When Was Last Pacemaker Check QUESTION #4 FULL TEXT: You/Your Family Experience fever (hyperthermia) with Anesthesia Last Oral Intake Last Oral intake: Last Oral Intake NPO since Meds taken in AM with sips of water? Meds patient instructed to take am of surgery PONV PONV - medical office specialist: PONV - medical office specialist Female No 10/10/24 10:57 HX of Motion Sickness Yes 10/10/24 10:57 HX of N/V After Surgery Yes 10/10/24 10:57 Non-Smoker Yes 10/10/24 10:57 Duration of Surgery greater Yes 10/10/24 10:57 than 60 minutes Number of Risk Factors 4 10/10/24 10:57 PONV Score Severe Risk 10/10/24 10:57 Height & Weight Height & Weight: Anesthesia: Height & Weight Height 5 ft 10 in 07/26/24 14:41 Respiratory Assessment Respiratory Assessment - medical office specialist: Respiratory Tract Infection Hx - medical office specialist Hx Respiratory Tract Infection No 10/10/24 10:57 STOP Sleep Apnea STOP Sleep Apnea - medical office specialist: STOP Sleep Apnea - medical office specialist Hx Hypertension No 10/10/24 10:57 Hx Sleep Apnea No 10/10/24 10:57 CPAP BIPAP Do you snore loudly (louder No 10/10/24 10:57 than talking or can be heard Do you often feel tired/ No 10/10/24 10:57 fatigued/ sleepy during daytime? Has anyone observed you stop No 10/10/24 10:57 breathing during sleep? STOP Results Negative 10/10/24 10:57 QUESTION #5 FULL TEXT : Do you snore loudly (louder than talking or can be heard through closed doors)? 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 Specify any problems Hx of Preganancy in last 3 N/A 10/10/24 10:57 Months Nurse Filling Out Transfusion NBUCHER 10/10/24 10:57 & Questions: Date: 10/10/24 10/10/24 10:57 Time: 11:00 10/10/24 10:57 Patient unable to answer at this time (ie. confused, unrespo /Reproduction History /Reproductive History - medical office specialist: /Reproductive Hx- medical office specialist Hx Now No 10/10/24 10:57 Gestational Age (in weeks): EDC: Hx Hx Para Hx Section SAB No 10/10/24 10:57 PFSH Medical History PONV (postoperative nausea and vomiting) History of flexible sigmoidoscopy Excessive bleeding MIGUELITO (generalized anxiety disorder) Major depressive disorder Aortic stenosis Congenital heart defect Atrial fibrillation Wears glasses Depression Anxiety Alcohol use Back pain Heartburn Non-smoker Leg cramps History of echocardiogram History of stress test Cardiology follow-up encounter Nausea Blood in the stool Hemorrhoids Vasovagal attack Heart disease Abnormal cardiac enzyme level Aortic root dilation Atrial flutter with rapid ventricular response Palpitations Home Medications ?Medication ?Instructions ?Recorded ?Last Taken ?Type aspirin 81 mg tablet,delayed 81 mg PO DAILY 09/04/18 03/08/24 History release (Adult Aspirin Regimen) metoprolol succinate 25 mg 25 mg PO BID 12/12/23 03/11/24 07:00 History tablet,extended release 24 hr warfarin 5 mg tablet 5 mg PO DAILY 12/12/23 03/08/24 History lorazepam 0.5 mg tablet 0.5 mg PO BID PRN Anxiety #60 tabs 07/03/24 Unknown Rx bupropion HCl 300 mg 24 hr tablet, 300 mg PO QAM #90 tabs 07/25/24 Unknown Rx extended release escitalopram oxalate 20 mg tablet 20 mg PO DAILY 90 days #90 tabs 07/25/24 Unknown Rx Allergy/AdvReac Type Severity Reaction Status Date / Time No Known Allergies Allergy Verified 10/10/24 10:55 Family History Father Anxiety Other Colon cancer Surgical History History of lumpectomy History of cardiac ablation for atrial fibrillation (~2018) Hx of surgical procedure History of cardiac radiofrequency ablation Hx of aortic valve replacement Hx of colonoscopy History of cardiac catheterization S/P RF ablation operation for arrhythmia Bicuspid aortic valve Coarctation of aorta Social History Smoking Status: Never smoker second hand exposure: No alcohol intake: current alcohol intake frequency: a few times a month substance use type: does not use caffeine: Yes frequency: does not exercise seatbelt use: always Prior Cardiac Testing/Procedures Prior Cardiac Testing/Procedures: Echocardiogram (AVR with mechanical Valve; trivial AI; EF 60%) Addt'l Information Additional Findings: Patient is followed at [facility] for his cardiac work up and follow up. Last seen 10/10/24 and cleard for Hemroidectomy. Audit: Pertinent Findings HISTORY of Pertinent Findings History of Pertinent Findings: Patient is followed at [facility] for his cardiac work up and follow up. Last seen 10/10/24 and cleard for Hemroidectomy. Pertinent Findings EKG Perinent findings: NSR Echo (EF%) pertinent findings: 60% EF with trivial AI Recommendation Anesthesia Recommendation Anesthesia recommendation: OPTIMIZED for anesthesia
[2024-10-29] VITALS (16 sets, daily range): BP systolic 76–119; BP diastolic 57–87; PULSE 65–90; RESP 14–18; TEMP 36.2–36.8; O2SAT 92–100; BMI 28.1
[2024-10-29 08:53] LABS: INR Fingerstick 1.3
--- NOTE | 2024-10-29 09:06 | PCM.PRE.AN2 ---
ASA Classification* ASA Classification ASA Classification: 2 Assessment & Plan Anesthesia* Anesthesia Assessment Anesthesia Assessment: Discussed sedation and/or anesthesia options, risks, benefits, and alternatives with patient/parents/legal guardian/POA. Questions invited. The patient/parents/legal guardian/POA seems to understand and agrees to proceed with anesthesia plan. Reviewed the physical assessment, medical history, allergy history and patient home medications list prior to surgery/procedure/anesthetic and documented any changes. Performed airway and anesthesia risk assessments. Anesthesia Type Anesthesia Type: MAC (GA bkup) Anesthesia Focused Assessment* Airway Assessment Mouth opens: >3 cm Mallampati Score: II Focused Labs Anesthesia Preop lab: CBC WBC 9.4 K/mm3 (4.4-11.0) 02/27/23 20:10 02/27/23 RBC 5.08 M/mm3 (4.6-6.2) 02/27/23 20:10 02/27/23 Hgb 15.9 g/dL (13.0-16.5) 02/27/23 20:10 02/27/23 Hct 47.2 % (40-54) 02/27/23 20:10 02/27/23 Plt Count 191 K/mm3 (150-450) 02/27/23 20:10 02/27/23 CHEMISTRY Potassium 3.7 mmol/L (3.5-5.1) 02/27/23 20:10 02/27/23 Sodium 141 mmol/L (136-145) 02/27/23 20:10 02/27/23 BUN 27 mg/dL (7-18) H 02/27/23 20:10 02/27/23 Creatinine 1.52 mg/dL (0.70-1.30) H 02/27/23 20:10 02/27/23 Glucose 109 mg/dL (74-106) H 02/27/23 20:10 02/27/23 TSH 3.54 uIU/mL (0.358-3.74) 04/02/18 22:20 04/02/18 COAG PT 13.5 SECONDS (11.7-14.9) 02/27/23 20:10 02/27/23 Pre-Assessment Diagnosis/Proposed Procedure Planned Operative Procedure(s): Hemorrhoidectomy w/THD Anesthesia History Anesthesia History - photo colorer: Anesthesia History - photo colorer Hx Hospitalization Yes: 09/2023 AORTIC VALVE 10/10/24 10:57 REPLACEMENT Any Problems With Anesthesia Yes: PT STATES LOW BP AND 10/10/24 10:57 PULMONARY EDEMA, PONV Cholinesterase deficiency No 10/10/24 10:57 You/Your Family Experience No 10/10/24 10:57 fever (hyperthermia) with Relationship Recent Exposure to Contagious No 03/12/24 07:42 Disease Does patient have nerve No 10/10/24 10:57 stimulator Patient instructed to have device shut off --Does patient have Pacemaker or ICD? When Was Last Pacemaker Check QUESTION #4 FULL TEXT: You/Your Family Experience fever (hyperthermia) with Anesthesia Last Oral Intake Last Oral intake: Last Oral Intake NPO since Meds taken in AM with sips of water? Meds patient instructed to take am of surgery PONV PONV - photo colorer: PONV - photo colorer Female No 10/10/24 10:57 HX of Motion Sickness Yes 10/10/24 10:57 HX of N/V After Surgery Yes 10/10/24 10:57 Non-Smoker Yes 10/10/24 10:57 Duration of Surgery greater Yes 10/10/24 10:57 than 60 minutes Number of Risk Factors 4 10/10/24 10:57 PONV Score Severe Risk 10/10/24 10:57 Height & Weight Height & Weight: Anesthesia: Height & Weight Height 5 ft 10 in 09/26/24 11:28 Respiratory Assessment Respiratory Assessment - photo colorer: Respiratory Tract Infection Hx - photo colorer Hx Respiratory Tract Infection No 10/10/24 10:57 STOP Sleep Apnea STOP Sleep Apnea - photo colorer: STOP Sleep Apnea - photo colorer Hx Hypertension No 10/10/24 10:57 Hx Sleep Apnea No 10/10/24 10:57 CPAP BIPAP Do you snore loudly (louder No 10/10/24 10:57 than talking or can be heard Do you often feel tired/ No 10/10/24 10:57 fatigued/ sleepy during daytime? Has anyone observed you stop No 10/10/24 10:57 breathing during sleep? STOP Results Negative 10/10/24 10:57 QUESTION #5 FULL TEXT : Do you snore loudly (louder than talking or can be heard through closed doors)? 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 Specify any problems Hx of Preganancy in last 3 N/A 10/10/24 10:57 Months Nurse Filling Out Transfusion NBUCHER 10/10/24 10:57 & Questions: Date: 10/10/24 10/10/24 10:57 Time: 11:00 10/10/24 10:57 Patient unable to answer at this time (ie. confused, unrespo /Reproduction History /Reproductive History - photo colorer: /Reproductive Hx- photo colorer Hx Now No 10/10/24 10:57 Gestational Age (in weeks): EDC: Hx Hx Para Hx Section SAB No 10/10/24 10:57 Active Medications Active Medications: Current Medications Generic Name Dose Route Start Last Admin Trade Name Freq PRN Reason Stop Dose Admin Cefotetan Disodium 2 gm/ 100 mls @ 200 mls/hr 10/29/24 10:30 Sodium Chloride IV 10/29/24 10:59 [facility]OP [facility] Medical History PONV (postoperative nausea and vomiting) History of flexible sigmoidoscopy Excessive bleeding MIGUELITO (generalized anxiety disorder) Major depressive disorder Aortic stenosis Congenital heart defect Atrial fibrillation Wears glasses Depression Anxiety Alcohol use Back pain Heartburn Non-smoker Leg cramps History of echocardiogram History of stress test Cardiology follow-up encounter Nausea Blood in the stool Hemorrhoids Vasovagal attack Heart disease Abnormal cardiac enzyme level Aortic root dilation Atrial flutter with rapid ventricular response Palpitations Home Medications ?Medication ?Instructions ?Recorded ?Last Taken ?Type aspirin 81 mg tablet,delayed 81 mg PO DAILY 09/04/18 10/24/24 History release (Adult Aspirin Regimen) metoprolol succinate 25 mg 25 mg PO BID 12/12/23 10/29/24 History tablet,extended release 24 hr warfarin 5 mg tablet 5 mg PO DAILY 12/12/23 10/25/24 History lorazepam 0.5 mg tablet 0.5 mg PO BID PRN Anxiety #60 tabs 07/03/24 Unknown Rx bupropion HCl 300 mg 24 hr tablet, 300 mg PO QAM #90 tabs 07/25/24 10/29/24 Rx extended release escitalopram oxalate 20 mg tablet 20 mg PO DAILY 90 days #90 tabs 07/25/24 10/29/24 Rx Allergy/AdvReac Type Severity Reaction Status Date / Time No Known Allergies Allergy Verified 10/29/24 08:58 Family History Father Anxiety Other Colon cancer Surgical History History of lumpectomy History of cardiac ablation for atrial fibrillation (~2017) Hx of surgical procedure History of cardiac radiofrequency ablation Hx of aortic valve replacement Hx of colonoscopy History of cardiac catheterization S/P RF ablation operation for arrhythmia Bicuspid aortic valve Coarctation of aorta Social History Smoking Status: Never smoker second hand exposure: No alcohol intake: current alcohol intake frequency: a few times a month substance use type: does not use caffeine: Yes frequency: does not exercise seatbelt use: always Review of Systems (Anesthesia) ROS Narrative System reviewed and no additional complaints, except as documented.
[2024-10-29] MEDS: 0.9% Normal Saline (1000mL) 1,000 ML 15 ML IV (10:27)
--- NOTE | 2024-10-29 10:41 | HP.PCM_ITS ---
History and Physical Date of Admission: 10/29/24 Date of Service: 08/22/24 MR#: [id number] Acct: [id number] Name: DAGOBERTO ARTEAGA Rep #: [id number] : 1985 Provider: Dr. Doe Link MD Age/Sex: 39/M Location: [facility] Status: Signed Intake Vital Signs 06/29/2409:16 07/26/2414:41 Height 5 ft 10 in 5 ft 10 in Intake Visit Reasons: MED CHECK Chief Complaint: med check Is patient in pain?: Yes (with bowel movements ) Allergies No Known Allergies Allergy (Verified 08/22/24 09:55) Medications ?Medication ?Instructions ?Recorded ?Confirmed ?Type aspirin 81 mg tablet,delayed 81 mg PO DAILY 09/04/18 08/22/24 History release (Adult Aspirin Regimen) metoprolol succinate 25 mg 25 mg PO BID 12/12/23 08/22/24 History tablet,extended release 24 hr warfarin 5 mg tablet 5 mg PO DAILY 12/12/23 08/22/24 History lorazepam 0.5 mg tablet 0.5 mg PO BID PRN Anxiety #60 tabs 07/03/24 08/22/24 Rx bupropion HCl 300 mg 24 hr tablet, 300 mg PO QAM #90 tabs 07/25/24 08/22/24 Rx extended release escitalopram oxalate 20 mg tablet 20 mg PO DAILY 90 days #90 tabs 07/25/24 08/22/24 Rx Hydrocortisone 2.5% / Lidocaine 5% #1 ea 08/22/24 08/22/24 Rx ointment (cmpd) (Hydrocortisone 2.5%/lidocaine 5% ointment (compound)) [facility] Medical History Excessive bleeding MIGUELITO (generalized anxiety disorder) Major depressive disorder Aortic stenosis Congenital heart defect Atrial fibrillation Wears glasses Depression Anxiety Alcohol use Back pain Heartburn Non-smoker Leg cramps History of echocardiogram History of stress test Cardiology follow-up encounter Nausea Blood in the stool Hemorrhoids Vasovagal attack Heart disease Abnormal cardiac enzyme level Aortic root dilation Atrial flutter with rapid ventricular response Palpitations Surgical History Hx of surgical procedure History of cardiac radiofrequency ablation Hx of aortic valve replacement Hx of colonoscopy History of cardiac catheterization S/P RF ablation operation for arrhythmia Bicuspid aortic valve Coarctation of aorta Family History Father AnxietyOther Colon cancer Social History Smoking Status: Never smoker second hand exposure: No alcohol intake: current alcohol intake frequency: a few times a month substance use type: does not use caffeine: Yes frequency: does not exercise seatbelt use: always HPI HPI HPI: Patient is a 39-year-old male who follows up from initial consultation on 06/29/2024 where we discussed his experience with hemorrhoids. He was last seen 07/16/2024. Unfortunately today he reports that he is not doing better and in fact reports a flareup was more pain and bleeding. He suspects this may be related to some recent travel over the . He notes that he had been consistent with sitz bath's until this travel and then for a period of 4 days omitted this from his routine. Regardless, he is not convinced that he needs to proceed with some sort of intervention. He states that it has come to the point that he is now nervous to even use the bathroom. He denies any particular constipation or firm stools, but suggest there is a possibility the consistency may have been altered slightly as his diet transition to Thanksgiving type foods. He does confirm that his toilet time has been kept to a minimum he has not been straining. Outside of the above Mr. Arteaga gives updates that his work schedule has changed such that he is working independently and this is giving him more flexibility with scheduling doctors appointments and any treatments. He also shares that his INR remains a little bit wild and gives example that his INR was 3.3 before but he has not yet rechecked this level. He continues to work with Dr. Gonsalves to optimize this level. Below is recapitulated from patient's prior visit for ease review: Patient is now a 39-year-old male who follows up from initial consultation on 06/29/2024 where we discussed his experience with hemorrhoids. Today he states that things are generally improved. He notes that last weekend he did have some bleeding issues that were associated with some pain and discomfort. When asked to describe the discomfort further he notes this was a dull throbbing discomfort. He does confirm that things are now okay. He confesses that he has been inconsistent with implementing the recommended changes but has been most consistent with doing sitz bath's. He shares that he is trying to do them twice daily but has been getting at least 1/day and. He states that the suppositories are use less consistently and on average are being used every other day. He also shares that he is improving his fiber intake and trying to eat less red meat. With this he notices that his bowel movements are occurring 1 time per day and are not overly hard or overly soft. He estimates his toilet time at just about a minute. He is not feeling any bulging of tissue today. When discussing his dietary changes to consciously choosing more chicken and beef he confesses there are concerns around his intake of vitamin K as his INR has been rather erratic. ROS General General: Yes fatigue; No weight change, appetite, colon cancer, breast cancer or weakness HEENT HEENT: No difficulty swallowing, eye injury, eye surgery, swollen glands or hoarseness Endo Endocrine: No thyroid disease, diabetes mellitus, thyroid cancer, Hair loss, heat intolerance or cold intolerance Skin Skin: No rash or changing moles Breast Breast: No left breast lump, right breast lump, nipple discharge, breast pain, abnormal mammogram, abnormal US or breast enlargement Musc Musculoskeletal: Yes back problems; No arthritis, rheumatoid arthritis, gout or joint pain Cardio Cardiovascular: Yes murmur and heart disease; No pacemaker, atrial fibrillation, high blood pressure, heart attack, heart stent, palpitations, shortness of breat with exertion or chest pain Psych Psychiatric: Yes depression and anxiety; No hearing voices Resp Respiratory: No shortness of breath, No sleep apnea, No cough, No COPD, No asthma, No emphysema and No wheezing Gastro Gastrointestinal: No abdominal pain, No nausea or vomiting, No diarrhea, No constipation, No blood in stool, No acid reflux, Yes hemorrhoids, No ulcers, No gallbladder problem and No black,tarry stools Jaime Hematologic: Yes blood thinners, No blood disorders, No bleeding, No anemia and No blood clots Additional Details: Coumadin/aspirin Neuro Neurologic: No system reviewed and no additional complaints, except as documented, No as per HPI, No abnormal gait, No abnormal hearing, No abnormal movements, No abnormal speech, No behavioral changes, No burning sensations, No confusion, No convulsions, No disequilibrium, No dizziness, No localized weakness, No frequent falls, No headache(s), No lack of coordination, No loss of vision, No memory loss, No numbness, No other visual disturbances, No radicular pain, No restless legs, No sensory deficit, No syncope, No tingling, No tremor(s), No weakness and No other Exam Const General: cooperative and anxious Orientation: alert, awake and oriented x3 Resp Effort & Inspection: normal respiratory effort GI Other: Skin tag with associated mild thrombosed external hemorrhoid on the left. More deeply there is an ulcerated appearance of the mucosa over the left lateral internal hemorrhoid: With some slight oozing. There are no signs of anal fissure Assessment and Plan Assessment and Plan (1) Hemorrhoids, external: Status: Chronic Comment: Patient is a 38-year-old male with complex cardiovascular history, who presents for persistent discomfort from external hemorrhoids. Additionally, he appears to have an element of internal hemorrhoids that are still causing some bleeding (as today during exam). Since his primary complaint is pain and there is evidence of thrombosed external hemorrhoids I do believe this is his main issue. I discussed options including lancing the external hemorrhoids (after appropriate hold of his warfarin), but shared that this is typically done in the first 72 hours of onset for maximal benefit. I also discussed the option for proceeding with excisional hemorrhoidectomy and yet was careful to outline the recovery for this procedure. I discussed that it can be rather uncomfortable and that he would be advised to plan for 1 to 2 weeks of downtime post procedure. Lastly, I shared that we could consider a conservative approach to management of this issue with an intentional effort at sitz bath's and use of Anusol suppositories. Mr. Arteaga states that it would be quite difficult to take the time away from work to undergo the excisional hemorrhoidectomy. He states that he would be inclined to proceed with the lancing procedure, however, he has not optimistic about the success rate and is concerned about a history of periprocedural syncope. Therefore, he resolves to try the conservative measures. We will plan to reevaluate him in clinic in a couple weeks to see W hat his progress is with implementation of these measures. Date 07/16/2024: Patient is now 39 years old but presents for follow-up of hemorrhoids. Overall he reports increased optimism with adopting some conservative measures, but freely confesses that he has not done them as consistently as recommended or as he would like. Offhandedly, he mentions that he is doing things from a career perspective that would allow him to undergo excisional hemorrhoidectomy if needed, but at this time he would like to continue conservative measures. Additionally, I did discuss both THD hemorrhoidectomy and stapled hemorrhoidectomy. Mr. Arteaga seems inclined to explore THD hemorrhoidectomy if needed, but the bulk of our visit was spent in encouraging him to stricter adherence to conservative measures. We also discussed potentially exploring options for alternative anticoagulation that would allow him more dietary fiber and hopefully more consistent control of his INR. He requests follow-up in another month to take stock of where this situation Perez. Update 08/22/2024: Unfortunately Mr. Arteaga has relapsed with pain and bleeding from his hemorrhoids. He does admit to relaxing on his regimen with sitz bath's and suspects that either this omission or his change in diet around the is to blame. Either way he is convinced that a intervention is required and I confirm his assessment from her exam which shows a mixture of left-sided external and internal engorged hemorrhoids. Based on these ongoing difficulties and the refractory status to hemorrhoid banding I recommend proceeding with transanal hemorrhoid dearterialization and excisional hemorrhoidectomy. With the upcoming holidays and Mr. Lau plans to travel at the end of September we have decided to try to proceed for this intervention in October so as to optimize his postoperative recovery as well. To move forward we will have to seek approval to hold his warfarin for the procedure and try for an INR of less than or equal to 1.5 the day of surgery. I am also asking him to complete an enema prior to his procedure. For the interim, I am prescribing him a compounded ointment consisting of both hydrocortisone and lidocaine to help him with his present discomfort. Plan: ? Continue sitz bath's twice daily ? Lidocaine and hydrocortisone ? Plan for THD with excisional hemorrhoidectomy (left side per exam today) in October. Preoperatively patient will require warfarin hold and enema. I have examined the patient and the H&P has been reviewed. There are no clinical changes since date of exam. Patient held his warfarin appropriately and his INR checked today is 1.3. Is appropriate to proceed with surgery. Both he and his have a number of questions related to the procedure and these were answered at bedside. I have addended his consent to include possibility of mucopexy he rather than proceeding with an excision of the hemorrhoidal tissue and the name of trying to minimize his postoperative risk for bleeding given that he will need to return to use of warfarin with his mechanical heart valve. Will now proceed to the operating room for THD with possible Meuchel pexy versus possible excisional hemorrhoidectomy.
[2024-10-29] MEDS: Cefotetan 2 GM in 0.9% Normal Saline (100mL MB+) 100 ML IV (10:44)
[2024-10-29] MEDS: Bupivacaine 0.25% 30 ML Vial (11:01)
--- NOTE | 2024-10-29 11:58 | PCM.OPRPT ---
Procedures Digestive 40xxx-49xxx: 06986 Excision, Anus w/US guidance Operative Report (Standard) Operative Information Date of Procedure: 10/29/24 Pre-Operative Diagnosis: Grade 4 internal hemorrhoids Post-Operative Diagnosis: Same Surgery/Procedure Performed: Transanal hemorrhoidal dearterialization with mucopexy cement conveyor operator: Yes Director Independent: Shawn Truong Tasks completed by insurance administrative assistant: Retracting Additional business support assistant?: Yes Additional Farm Service Adviser #2: Demarcus Stein Tasks completed by business support assistant #2: Retracting Type of Anesthesia: MAC/Supplemental RN Documented Start/Stop Times: Operation Date: 10/29/24 10:30 Case Time Into Pre-Op 10/29/24 08:43 Out of Pre-Op 10/29/24 10:35 Anesthesia Start 10/29/24 10:38 Into Room 10/29/24 10:38 Procedure Start 10/29/24 11:01 Procedure End 10/29/24 11:51 Out of Room 10/29/24 11:58 Anesthesia End 10/29/24 11:59 Into Recovery 10/29/24 12:01 Into Phase II Recovery 10/29/24 13:48 Out of Recovery 10/29/24 13:48 Procedure Start Time: 11:01 Procedure Stop Time: 11:51 Select all DRAINS/GRAFTS/IMPLANTS that apply: None Estimated Blood Loss: 50 Specimen collected: No Description of surgery: After appropriate identification in the preoperative holding area and confirmation of consents patient was brought to the operating room. There he was positioned supine and underwent sedation per anesthesia with placement of an LMA airway. His legs were positioned in yellowfin leg holders and care was taken to prevent pressure on pressure points. His perineal/perirectal region was prepped and draped in usual sterile fashion. A timeout followed to confirm patient procedure. I began with insertion of a lubricated Doppler proctoscope and localized the pulsation of the hemorrhoidal artery at the 1:00 position. I then performed suture ligation of this vessel with a 0 Vicryl suture in a [id number] fashion. The proctoscope was withdrawn and this process was repeated at even intervals for the circumference of patient's anal canal after first localizing the Doppler signal from the feeding artery in that location. A total of 6 ligations were performed. Additionally, at the 3:00 and 5:00 positions I performed a suture mucopexy of the disproportionately prolapsed mucosa in that location by continuing to run my Vicryl suture for approximately another 1.5cm distally and then tying the suture back to itself. Great care was taken to avoid proceeding too distally and thereby incorporating mucosal tissue at or below the dentate line. At the conclusion of the procedure already there was significant improvements of the hemorrhoidal prolapse and no evidence of any ongoing bleeding. I then proceeded to perform a intersphincteric and pudendal nerve block using 20 mL of 0.25 percent bupivacaine. A dressing of rolled gauzes and ABD was placed across patient's anus and held in position with tape and mesh underwear. Patient was then awoken from sedation by anesthesia and taken to PACU for ongoing recovery. Surgical Findings: ? Moderately large prolapsed left-sided hemorrhoidal tissue Complications Complications: No Admit VTE Documentation VTE Mechan Device Prophylaxis: SCD's
--- NOTE | 2024-10-29 11:59 | EX.PCM.DISCH ---
Discharge Instructions Diet Discharge Diet: - (High Fiber Diet) Activity Discharge Activity: May Take a Tub Bath (Continue daily sitz baths) Lifting Restrictions: 15 Dressing / Incision Call your doctor if your incision/area has: Continuous Slow Oozing, Sudden Increased Bleeding, Increased Redness and Foul Smelling Discharge Call your doctor if you observe: Fever of 101 or Higher Remove Dressing in: 1 day Cleanse incision/area with: Soap & Water Follow Up Care Please Follow Up With: Doe Link MD When: 3 weeks postop Test Results: Test results from this visit will be discussed in further detail at your follow-up appointment, if applicable. Discharge Plan Admission Primary Reason for Your Visit: Hemorrhoid dearterialization Attending Provider: Doe Link Primary Care Provider: Dewey Gonsalves Instructions Additional Instructions / Restrictions: 1. Please resume warfarin in 48 hours following procedure 2. Please take stool softeners and MiraLAX as needed to have 1 soft bowel movement per day following surgery and avoid constipation Print Language: Mongolian Discharge Orders/Prescriptions Prescriptions: New diazepam [Valium] 5 mg tablet 5 mg PO BID PRN (Reason: muscle spasm) Qty: 10 0RF Rx Instructions: Please avoid taking this medication at the same time as your lorazepam Continued aspirin [Adult Aspirin Regimen] 81 mg tablet,delayed release (DR/EC) 81 mg PO DAILY Patient Comments: STOP 3 DAYS PRIOR TO PROCEDURE warfarin 5 mg tablet 5 mg PO DAILY Patient Comments: STOP 3 DAYS PRIOR TO PROCEDURE metoprolol succinate 25 mg tablet extended release 24 hr 25 mg PO BID bupropion HCl 300 mg tablet extended release 24 hr 300 mg PO QAM Qty: 90 1RF escitalopram oxalate 20 mg tablet 20 mg PO DAILY 90 Days Qty: 90 1RF lorazepam 0.5 mg tablet 0.5 mg PO BID PRN (Reason: Anxiety) Qty: 60 1RF Referrals / Follow Up: Dewey Gonsalves DO [Primary Care Provider] - Disposition Disposition (needs filled in before D/C Order can be placed): Home, Self Care
--- NOTE | 2024-10-29 12:07 | PCM.POST.ANE ---
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
--- NOTE | 2024-10-29 12:14 | POSTOPAN2_ITS ---
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.[email or web address] Spontaneous unlabored Yes 10/29/24 12:09 CONTROL TOWER OPERATOR.OS respirations Mental status Calm,Asleep 10/29/24 12:09 CONTROL TOWER OPERATOR.[facility] nausea No 10/29/24 12:09 CONTROL TOWER OPERATOR.[facility] Vomiting No 10/29/24 12:09 CONTROL TOWER OPERATOR.OS Anesthesia Postop Eval I: Fluid Summary Crystalloid volume administer 600 10/29/24 12:09 CONTROL TOWER OPERATOR.[facility] (ml) Colloids volume administered ( ml) Blood Product volume administered (ml) Total IV fluid infused 600 10/29/24 12:09 CONTROL TOWER OPERATOR.OS Anesthesia Postop Eval I: Summary Notes Anesthesia Complication No 10/29/24 12:09 CONTROL TOWER OPERATOR.[facility] Anesthesia Complication Comment: Post-operative progress note pt restful OA in 10/29/24 12:09 CONTROL TOWER OPERATOR.[facility] place, could be removed at any time Anesthesia: Postop Eval II Evaluation Mental status: Awake Pain Level: 0 nausea: No Vomiting: No
--- NOTE | 2024-10-29 12:14 | PCM.POSTANE2 ---
Anesthesia Postop Eval I Sum Postop Eval Completion status Anesthesia document: Postop Eval 1 completed: Yes Anesthesia Postop Eval I Summary Anesthesia Postop Eval I Summary: Anesthesia Postop Eval I: Assessment Summary Airway patent Yes 10/29/24 12:09 CLINICAL SCIENCE LIAISON.[email or web address] Spontaneous unlabored Yes 10/29/24 12:09 CLINICAL SCIENCE LIAISON.OS respirations Mental status Calm,Asleep 10/29/24 12:09 CLINICAL SCIENCE LIAISON.[facility] nausea No 10/29/24 12:09 CLINICAL SCIENCE LIAISON.[facility] Vomiting No 10/29/24 12:09 CLINICAL SCIENCE LIAISON.OS Anesthesia Postop Eval I: Fluid Summary Crystalloid volume administer 600 10/29/24 12:09 CLINICAL SCIENCE LIAISON.[facility] (ml) Colloids volume administered ( ml) Blood Product volume administered (ml) Total IV fluid infused 600 10/29/24 12:09 CLINICAL SCIENCE LIAISON.OS Anesthesia Postop Eval I: Summary Notes Anesthesia Complication No 10/29/24 12:09 CLINICAL SCIENCE LIAISON.[facility] Anesthesia Complication Comment: Post-operative progress note pt restful OA in 10/29/24 12:09 CLINICAL SCIENCE LIAISON.[facility] place, could be removed at any time Anesthesia: Postop Eval II Evaluation Mental status: Awake Pain Level: 0 nausea: No Vomiting: No
[2024-10-29] MEDS: Dibucaine 30 GM Tube 1 APPLIC TOPICAL (13:20)
[2024-10-29] MEDS: diazePAM 5 MG Tablet PO (13:27)
[2024-10-29] MEDS: Acetaminophen 325 MG Tablet 650 MG PO (16:00)
== END 2024-10-29 17:40 | disposition home or self-care (01) ==
LOC: SDC 08:39 → AC 08:40
PROVIDERS: PCP Family Medicine; Referring Provider Surgery; Visit Provider Surgery
PROC: (CPT 46948; principal; 2024-10-29 10:15)
DX: K64.3 Fourth degree hemorrhoids (principal); K64.5 Perianal venous thrombosis; Z80.0 Family history of malignant neoplasm of digestive organs; Z79.82 Long term (current) use of aspirin; F32.A Depression, unspecified; F41.9 Anxiety disorder, unspecified; Z95.3 Presence of xenogenic heart valve; Q23.81 Bicuspid aortic valve
CPT/HCPCS: 46948; 00902; 36416; 85610; A4216; J2405